=== PATIENT | female | born 1935 | race Caucasian/White ===

== ENCOUNTER 2020-09-13 14:34 | Outpatient (CLI) | payer MEDICARE, OTHER | END 2020-09-13 14:35 | disposition critical access hospital (66) | LOC: EMS 14:34 | DX: R10.9 Unspecified abdominal pain (principal) | CPT/HCPCS: A0425; A0429 ==

== ENCOUNTER 2020-09-13 15:05 | Emergency (ER) | payer MEDICARE, OTHER ==
--- NOTE | 2020-09-13 15:12 | ED Physician Documentation ---
History of Present Illness - Stated complaint Stated Complaint: GLF - Chief complaint Chief Complaint: Trauma Ch/Bk - History obtained from History obtained from: Patient, EMS - History of Present Illness Timing: How many days ago (2) Pain level max: 6 Pain level now: 4 - Additonal information Additional information: Patient is an 85-year-old female who presents to the emergency department after a ground-level fall 2 days ago. She states that she fell on a concrete step on her left ribs. Worse with movement, better with Tylenol and rest. No difficulty breathing. No cough. No fever. No congestion. No headache. No vomiting. She states that she had some slight difficulty writing a check yesterday. No neck or back pain. No hip pain. Ambulating without difficulty. Patient states that she is on Eliquis at home. Review of Systems Ten Systems: 10 systems reviewed and negative Constitutional: denies: Fever, Chills Ears: denies: Ear pain Nose: denies: Rhinorrhea / runny nose, Congestion GI: denies: Vomiting, Diarrhea Skin: denies: Rash Musculoskeletal: denies: Neck pain, Back pain Neurologic: denies: Focal weakness, Numbness, Headache PD PAST MEDICAL HISTORY - Past Medical History Past Medical History: Yes Cardiovascular: Atrial fibrillation - Allergies Allergies/Adverse Reactions: Allergies Allergy/AdvReac Type Severity Reaction Status Date / Time aspirin Allergy Unknown Verified 09/13/20 15:10 iodine Allergy Unknown Verified 09/13/20 15:10 antibiotic that starts with Allergy Unknown Uncoded 09/13/20 15:10 a B? - Living Situation Living Situation: reports: With family Living Arrangement: reports: At home - Social History Does the pt have substance abuse?: No - Family History Family history: reports: Non contributory PD ED PE NORMAL - Vitals Vital signs reviewed: Yes - General General: Alert and oriented X 3, No acute distress, Well developed/nourished - HEENT HEENT: Atraumatic, PERRL, Moist mucous membranes - Neck Neck: Supple, no meningeal sign, No bony TTP - Cardiac Cardiac: RRR, Strong equal pulses - Respiratory Respiratory: No respiratory distress, Clear bilaterally - Abdomen Abdomen: Soft, Non tender, Non distended - Back Back: Other (No midline tenderness to palpation or percussion. No step-off or deformity over the thoracic or lumbar spine. She is tender to palpation over the lateral left mid axillary ribs. No ecchymosis. No crepitus.) - Derm Derm: Warm and dry - Extremities Extremities: No edema, No calf tenderness / cord - Neuro Neuro: Alert and oriented X 3, money manager 2-12 intact, No motor deficit, No sensory deficit, Normal speech Eye Opening: Spontaneous Motor: Obeys Commands Verbal: Oriented GCS Score: 15 - Psych Psych: Normal mood, Normal affect Results - Vitals Vitals: Vital Signs - 24 hr 09/13/20 09/13/20 15:07 16:28 Temperature 37.0 C Heart Rate 68 94 Respiratory 16 18 Rate Blood Pressure 177/117 H 140/101 H O2 Saturation 95 94 Oxygen O2 Source Room air - Rads (name of study) head CT Radiology: Prelim report reviewed, EMP read contemporaneously, See rad report (1. Age-related volume loss and moderate small vessel ischemic change. 2. No evidence acute stroke, hemorrhage, or mass. 3. No evidence of significant intracranial sequelae of acute trauma. ) rib with cxr Radiology: Prelim report reviewed, EMP read contemporaneously, See rad report (1. No evidence of displaced left rib fracture. 2. Congestive heart failure exacerbation. ) PD MEDICAL DECISION MAKING - ED course Complexity details: reviewed results, re-evaluated patient, considered differential, d/w patient ED course: Patient with a ground-level fall. No acute findings on x-rays. Appears to be soft tissue contusions. No pneumothorax. No fevers. No chills. No cough. Patient declines pain medication here for home. Ambulating without difficulty. Patient counseled regarding signs and symptoms for which I believe and urgent re-evaluation would be necessary. Patient with good understanding of and agreement to plan and is comfortable going home at this time This document was made in part using voice recognition software. While efforts are made to proofread this document, sound alike and grammatical errors may occur. Departure - Departure Disposition: 01 Home, Self Care Clinical Impression: Contusion of rib on left side Qualifiers: Encounter type: initial encounter Qualified Code(s): S20.212A - Contusion of left front wall of thorax, initial encounter Fall Qualifiers: Encounter type: initial encounter Qualified Code(s): W19.XXXA - Unspecified fall, initial encounter Condition: Good Instructions: ED Contusion Rib Follow-Up: your,doctor in 1 week [Other] Comments: Your x-rays and CT scan did not show any acute abnormalities today. Continue Tylenol at home. Return if you worsen. Discharge Date/Time: 09/13/20 16:57
--- NOTE | 2020-09-13 15:50 | CT Report ---
PROCEDURE: HEAD WO INDICATIONS: fall, head injury, on anticoagulants TECHNIQUE: Noncontrast 4.5 mm thick angled axial sections acquired from the foramen magnum to the vertex. For r adiation dose reduction, the following was used: automated exposure control, adjustment of mA and/or kV according to patient size. COMPARISON: None. FINDINGS: Image quality: Excellent. CSF spaces: Basal cisterns are patent. No extra-axial fluid collections. Ventricles are normal in size and shape. Age-related volume loss and moderate small vessel ischemic change. Brain: No midline shift. No intracranial masses or hemorrhage. Dorsey-white matter interface is norm al. Skull and face: Calvarium and visualized facial bones are intact, without suspicious lesions. Sinuses: Visualized sinuses and mastoids are clear. IMPRESSION: 1. Age-related volume loss and moderate small vessel ischemic change. 2. No evidence acute stroke, hemorrhage, or mass. 3. No evidence of significant intracranial sequelae of acute trauma. Reviewed by: Miguel Simeon MD on 09/13/2020 2:48 PM TRENT Approved by: Miguel Simeon MD on 09/13/2020 2:48 PM AKYANG Station ID: [id number]
--- NOTE | 2020-09-13 15:56 | XRAY Report ---
PROCEDURE: Ribs w/PA Chest LT INDICATIONS: fall, L rib injury TECHNIQUE: 3 views of the left ribs were acquired, along with a single view chest. COMPARISON: None FINDINGS: Surgical changes and devices: Left upper quadrant clips. Bones and chest wall: No fractures or dislocations. No suspicious bony lesions. Overlying soft tis sues appear unremarkable. Lungs and pleura: No pleural effusions or pneumothorax. Mild diffuse interstitial change with curren tly B-lines. Mediastinum: Mediastinal contours appear normal. Mild cardiomegaly. IMPRESSION: 1. No evidence of displaced left rib fracture. 2. Congestive heart failure exacerbation. Reviewed by: Miguel Simeon MD on 09/13/2020 2:55 PM AKYANG Approved by: Miguel Simeon MD on 09/13/2020 2:55 PM AKYANG Station ID: [id number]
[2020-09-13 16:30] VITALS: BP 140/101
[2020-09-13] MEDS ORDERED: ACETAMINOPHEN 325 MG TABLET PO STA (16:43)
== END 2020-09-13 16:57 | disposition home or self-care (01) ==
LOC: ED 15:05
DX: S20.212A Contusion of left front wall of thorax, initial encounter (principal); W01.198A Fall on same level from slipping, tripping and stumbling with subsequent striking against other object, initial encounter; I48.91 Unspecified atrial fibrillation; Z79.01 Long term (current) use of anticoagulants
CPT/HCPCS: 70450; 71101; 99282; 99284; A9270

== ENCOUNTER 2020-11-20 12:56 | Outpatient (CLI) | payer MEDICARE, OTHER ==
--- NOTE | 2020-11-20 13:48 | XRAY Report ---
PROCEDURE: Chest 2 View X-Ray INDICATIONS: R06.02/R05 TECHNIQUE: 2 view(s) of the chest. COMPARISON: None. FINDINGS: Surgical changes and devices: Surgical clips left thyroid region. Surgical clips left upper quadrant. . Lungs and pleura: No pleural effusions or pneumothorax. Lungs are abnormal with a mild interstitial prominence that might represent prior smoking history.. Mediastinum: Mediastinal contours are normal. Heart size is at the upper limits of normal. Bones and chest wall: No suspicious bony abnormalities. Soft tissues appear unremarkable. IMPRESSION: Heart size is at the upper limits of normal. Mild chronic interstitial prominence. If po ssible please provide a specific indication rather than a code to assist in providing a targeted impr ession. Reviewed by: Rangel Hull MD on 11/20/2020 1:47 PM PDT Approved by: Rangel Hull MD on 11/20/2020 1:47 PM PDT Station ID: [id number]
== END 2020-11-20 12:57 | disposition home or self-care (01) ==
LOC: DI 12:56
PROVIDERS: ATTEND Physician Assistant
DX: R06.02 Shortness of breath (principal); R05 Cough

== ENCOUNTER 2021-05-09 00:03 | Outpatient (CLI) | payer MEDICARE, OTHER | END 2021-05-09 00:04 | disposition critical access hospital (66) | LOC: EMS 00:03 | DX: Z04.3 Encounter for examination and observation following other accident (principal) | CPT/HCPCS: A0425; A0429 ==

== ENCOUNTER 2021-05-09 00:23 | Emergency (ER) | payer MEDICARE, OTHER ==
[2021-05-09 01:20] LABS: BASOPHILS % (AUTO) 0.6 %; EOSINOPHILS # (AUTO) 0.1 10^3/uL (0.0-0.7); EOSINOPHILS % (AUTO) 1.9 %; HCT - HEMATOCRIT 39.4 % (37.0-47.0); HGB - HEMOGLOBIN 12.2 g/dL (12.0-16.0); LYMPHOCYTES # (AUTO) 1.9 10^3/uL (1.5-3.5); LYMPHOCYTES % (AUTO) 34.6 %; MEAN CORPUSCULAR HEMOGLOBIN 24.9 pg (27.0-31.0); MEAN CORPUSCULAR VOLUME 80.4 fL (81.0-99.0); MONOCYTES # (AUTO) 0.8 10^3/uL (0.0-1.0); MONOCYTES % (AUTO) 14.1 %; NEUTROPHILS # (AUTO) 2.6 10^3/uL (1.5-6.6); NEUTROPHILS % (AUTO) 48.6 %; NRBC ABSOLUTE COUNT (AUTO) 0.03 x10^3/uL; NUCLEATED RED BLOOD CELLS AUTO 0.6 /100WBC; PLT - PLATELET COUNT 252 10^3/uL (130-450); RED CELL DISTRIBUTION WIDTH 20.7 % (12.0-15.0); SLIDE REVIEW? Indicated; WHITE BLOOD COUNT 5.4 x10^3/uL (4.8-10.8)
[2021-05-09 01:28] LABS: ALBUMIN 3.5 g/dL (3.2-5.5); ALBUMIN/GLOBULIN RATIO 1.2 (1.0-2.2); BILIRUBIN,TOTAL 1.6 mg/dL (0.2-1.0); CALCIUM 9.2 mg/dL (8.5-10.3); CREATININE 0.7 mg/dL (0.4-1.0); POTASSIUM 3.5 mmol/L (3.5-5.0); TOTAL PROTEIN 6.4 g/dL (6.7-8.2)
[2021-05-09 01:39] LABS: PLATELET ESTIMATE, MANUAL NORMAL (130-450,000) (NORMAL); PLATELET MORPHOLOGY NORMAL APPEARANCE (NORMAL); RBC MORPHOLOGY (MULTIPLE) 1+ ANISOCYTOSIS (NORMAL)
[2021-05-09 01:40] LABS: WBC MORPHOLOGY (MULTIPLE) NORMAL APP (NORMAL)
[2021-05-09 02:05] LABS: BILIRUBIN,URINE NEGATIVE (NEGATIVE); CLARITY,URINE CLEAR (CLEAR); GLUCOSE, URINE (UA) NEGATIVE (NEGATIVE); KETONES,URINE (UA) NEGATIVE (NEGATIVE); LEUKOCYTE ESTERASE, URINE TRACE (NEGATIVE); NITRITE,URINE NEGATIVE (NEGATIVE); OCCULT BLOOD,URINE NEGATIVE (NEGATIVE); PROTEIN,URINE 30 mg/dL (NEGATIVE); UROBILINOGEN,URINE 0.2 (NORMAL) E.U./dL (NORMAL)
[2021-05-09 02:11] LABS: BACTERIA,URINE Few /HPF (None Seen); RBC,URINE None Seen /HPF (0-5); SQUAMOUS EPITHELIAL CELL,UR MANY Squamous (<= Few)
--- NOTE | 2021-05-09 03:12 | ED Physician Documentation ---
PD HPI Fall - Stated complaint Stated Complaint: GLF - Chief complaint Chief Complaint: General - History obtained from History obtained from: Patient, EMS - History of Present Illness Mechanism of injury: Other (on a chair to place an item on a top shelf and the chair collapsed. The patient fell foreward onto her chest and was not able to get up.) Fall distance: Less than 5ft Where injury occurred: Home Timing - onset: Today Injury(ies) location: Other (denies any injury) Associated symptoms: Other (had to crawl around today as she could not initially get up by herself.). No: LOC, AMS, Amnesia, Seizures, Ear drainage, Nasal drainage, Neck pain, Weakness, Paresthesias, Dyspnea, Nausea / vomiting, Hematemesis, Abdominal distension Symptoms improve with: Rest Contributing factors: Anticoagulated Similar symptoms before: Has not had sx before Recently seen: Not recently seen - Additional information Additional information: 85-year-old female went to place an item on a high shelf in her kitchen. She brought a chair over stood on top of the chair and the chair collapsed. She fell forward landing on her chest. She denies any head injury or loss of consciousness she was unable to get herself back up off the floor and she was unable to find her cell phone. She crawled around, and about 12 hours into it, she was able to find her cell phone called the paramedics they came to her house and the patient is transported the hospital as a fall on [facility]. The patient states she has no pain she did not strike her head she did not have loss of consciousness and she denies any specific injury associated with the fall. Here in the emerge department she is able to get up stand and walk and do this independently. Review of Systems Constitutional: denies: Fever Ears: denies: Ear pain Nose: denies: Congestion Throat: denies: Sore throat Cardiac: denies: Chest pain / pressure, Palpitations Respiratory: denies: Dyspnea, Cough GI: denies: Abdominal Pain, Nausea, Vomiting : reports: Frequency. denies: Dysuria Skin: denies: Rash Musculoskeletal: denies: Neck pain, Back pain, Extremity pain Neurologic: denies: Generalized weakness, Focal weakness, Numbness PD PAST MEDICAL HISTORY - Past Medical History Cardiovascular: Atrial fibrillation - Allergies Allergies/Adverse Reactions: Allergies Allergy/AdvReac Type Severity Reaction Status Date / Time aspirin Allergy Unknown Verified 09/13/20 15:10 iodine Allergy Unknown Verified 09/13/20 15:10 antibiotic that starts with Allergy Unknown Uncoded 09/13/20 15:10 a B? - Social History Does the pt smoke?: No Smoking Status: Never smoker Does the pt have substance abuse?: No PD ED PE NORMAL - Vitals Vital signs reviewed: Yes (hypertensive ) - General General: Alert and oriented X 3, No acute distress, Well developed/nourished - HEENT HEENT: Atraumatic, PERRL, EOMI - Neck Neck: Supple, no meningeal sign, No bony TTP - Cardiac Cardiac: Other (irregularly irregular with 2/6 short systolic murmer ) - Respiratory Respiratory: No respiratory distress, Clear bilaterally - Abdomen Abdomen: Soft, Non tender - Back Back: No CVA TTP, No spinal TTP - Derm Derm: Normal color, Warm and dry, No rash - Extremities Extremities: No deformity, Other (There is pitting edema bilat and symetric. 2+ and up to the thigh. Reduced from maximum s/p weeping and not weeping or blistered now. ) - Neuro Neuro: Alert and oriented X 3, reinforced ironworker 2-12 intact, No motor deficit, No sensory deficit, Normal speech Eye Opening: Spontaneous Motor: Obeys Commands Verbal: Oriented GCS Score: 15 - Psych Psych: Normal mood, Normal affect Results - Vitals Vitals: Vital Signs - 24 hr 05/09/21 05/09/21 05/09/21 00:30 03:00 03:35 Temperature 36.5 C Heart Rate 82 80 82 Respiratory 18 16 16 Rate Blood Pressure 149/107 H 123/76 135/85 H O2 Saturation 92 94 94 05/09/21 03:55 Temperature 36.5 C Heart Rate 82 Respiratory 16 Rate Blood Pressure 135/85 H O2 Saturation 94 Oxygen O2 Source Room air - Labs Labs: Laboratory Tests 05/09/21 05/09/21 05/09/21 01:10 01:10 01:47 WBC 5.4 RBC 4.90 Hgb 12.2 Hct 39.4 MCV 80.4 L MCH 24.9 L MCHC 31.0 L RDW 20.7 H Plt Count 252 MPV 10.0 Neut # (Auto) 2.6 Lymph # (Auto) 1.9 [place] # (Auto) 0.8 Eos # (Auto) 0.1 Baso # (Auto) 0.0 Absolute Nucleated RBC 0.03 Nucleated RBC % 0.6 Manual Slide Review Indicated WBC Morphology NORMAL KALINA Platelet Estimate NORMAL (130-450,000) Platelet Morphology NORMAL APPEARANCE RBC Morph Micro Appear 1+ ANISOCYTOSIS Sodium 137 Potassium 3.5 Chloride 95 L Carbon Dioxide 30 Anion Gap 12.0 BUN 25 H Creatinine 0.7 Estimated GFR (MDRD) 80 L Glucose 92 Calcium 9.2 Total Bilirubin 1.6 H AST 39 ALT 24 Alkaline Phosphatase 77 Total Protein 6.4 L Albumin 3.5 Globulin 2.9 Albumin/Globulin Ratio 1.2 Lipase 33 Urine Color YELLOW Urine Clarity CLEAR Urine pH 7.0 Ur Specific [place] 1.020 Urine Protein 30 H Urine Glucose (UA) NEGATIVE Urine Ketones NEGATIVE Urine Occult Blood NEGATIVE Urine Nitrite NEGATIVE Urine Bilirubin NEGATIVE Urine Urobilinogen 0.2 (NORMAL) Ur Leukocyte Esterase TRACE H Urine RBC None Seen Urine WBC 4-5 Ur Squamous Epith Cells MANY Squamous H Urine Bacteria Few Ur Microscopic Review INDICATED Urine Culture Comments NOT INDICATED Procedures - IVC sono (time) 0045 Bedside IVC sono: IVC measures (cm) (2.6), High CVP PD MEDICAL DECISION MAKING - ED course Complexity details: reviewed old records, reviewed results, re-evaluated patient, considered differential, d/w patient ED course: 85y/o female with a GLF unable to get up today has no injury. She appears competent and my initial worry was for over diuresis and I interrogated the IVC and found the patient has a lot of passive congestion similar to what she is under treatment for and she did nor require fluid rescue. We checked up on the patient by evaluating her blood counts, electrolytes, kidney and liver function and urinalysis. We found nothing amiss. She is on eliquis and has had a fall but did not strike her head. She denies neck pain. A CT of the head is not obtained. She eventually wants to go home and is able to easily ambulate to the bathroom. Departure - Departure Disposition: 01 Home, Self Care Clinical Impression: Fall at home Qualifiers: Encounter type: initial encounter Qualified Code(s): W19.XXXA - Unspecified fall, initial encounter Condition: Stable Instructions: ED Mechanical Fall, ED Prevention Fall Follow-Up: MELVI CHAVIRA PA-C [Primary Care Provider] - Discharge Date/Time: 05/09/21 03:57
[2021-05-09 03:55] VITALS: BP 135/85
== END 2021-05-09 03:57 | disposition home or self-care (01) ==
LOC: EDUNIT# → SUPCPDRO 00:23 → ED 00:23
DX: Z04.3 Encounter for examination and observation following other accident (principal); W07.XXXA Fall from chair, initial encounter; Y93.89 Activity, other specified; Y92.000 Kitchen of unspecified non-institutional (private) residence as the place of occurrence of the external cause; I48.91 Unspecified atrial fibrillation; Z79.01 Long term (current) use of anticoagulants; R01.1 Cardiac murmur, unspecified; R60.0 Localized edema; R35.0 Frequency of micturition
CPT/HCPCS: 36415; 80053; 81001; 81003; 83690; 85025; 87086; 99282; 99283

== ENCOUNTER 2021-06-09 13:09 | Emergency (ER) | payer MEDICARE, OTHER ==
[2021-06-09] MEDS ORDERED: FUROSEMIDE 40 MG/4 ML VIAL IVP STA (13:59)
--- NOTE | 2021-06-09 14:03 | ED Physician Documentation ---
PD HPI DYSPNEA - Stated complaint Stated Complaint: SOA,FATIGUE - Chief complaint Chief Complaint: Resp - History obtained from History obtained from: Patient - History of Present Illness Timing - onset: How many weeks ago (1) Timing - onset during: Light activity Timing - duration: Weeks (1) Timing - details: Gradual onset, Still present Inciting event(s): URI Improved by: Rest Worsened by: Exertion, Coughing Associated symptoms: Cough, Bilateral edema. No: Fever, Hemoptysis, Wheezing, Chest pain / discomfort, Palpitations, Diaphoresis, Unilateral edema, Anxiety Similar symptoms before: Diagnosis (CHF URI) Recently seen: Not recently seen - Additional information Additional information: 86-year-old female with a history of congestive heart failure has developed increased exertional dyspnea over the past week. She noted that this seemed to happen when she had a cough and congestion was bringing up yellowish-green phlegm. She denies any chest pain associated with this. She has not had a fever associated with this. She is taking some furosemide and her doctor is asked her to increase her dose to 1-1/2 pills a day. Review of Systems Constitutional: denies: Fever, Chills, Myalgias Eyes: denies: Decreased vision Ears: denies: Ear pain Nose: reports: Rhinorrhea / runny nose, Congestion Throat: denies: Sore throat Cardiac: denies: Chest pain / pressure, Palpitations Respiratory: reports: Dyspnea, Cough. denies: Wheezing GI: denies: Abdominal Pain, Nausea, Vomiting, Constipation, Diarrhea : reports: Frequency. denies: Dysuria Skin: denies: Rash Musculoskeletal: reports: Extremity swelling. denies: Neck pain, Back pain, Extremity pain Neurologic: denies: Generalized weakness, Focal weakness, Numbness PD PAST MEDICAL HISTORY - Past Medical History Past Medical History: Yes Cardiovascular: Atrial fibrillation Endocrine/Autoimmune: HyPOthyroidism GI: GERD - Past Surgical History Past Surgical History: Yes General: Cholecystectomy, Splenectomy Ortho: Hip replacement, Knee replacement HEENT: Tonsil/Adenoidectomy - Present Medications Home Medications: Ambulatory Orders Medication Instructions Recorded Confirmed Apixaban [Eliquis] 2.5 mg PO BID 06/09/21 06/09/21 Esomeprazole Magnesium [Nexium] 20 mg PO DAILY 06/09/21 06/09/21 Furosemide [Lasix] 40 mg PO DAILY 06/09/21 06/09/21 Furosemide [Lasix] 80 mg PO DAILY 06/09/21 06/09/21 Metoprolol Tartrate [Lopressor] 50 mg PO BID 06/09/21 06/09/21 Potassium Chloride 10 meq PO DAILY 06/09/21 06/09/21 Thyroid,Pork [Alden Thyroid] 60 mg PO DAILY 06/09/21 06/09/21 - Allergies Allergies/Adverse Reactions: Allergies Allergy/AdvReac Type Severity Reaction Status Date / Time aspirin Allergy Unknown Verified 06/09/21 13:20 iodine Allergy Unknown Verified 06/09/21 13:20 antibiotic that starts with Allergy Unknown Uncoded 06/09/21 13:20 a B? - Social History Does the pt smoke?: No Smoking Status: Never smoker Does the pt drink ETOH?: No Does the pt have substance abuse?: No PD ED PE NORMAL - Vitals Vital signs reviewed: Yes (hypertensive) - General General: Alert and oriented X 3, No acute distress, Well developed/nourished - HEENT HEENT: Atraumatic, PERRL, EOMI - Neck Neck: Supple, no meningeal sign, No bony TTP - Cardiac Cardiac: Other (Irregularly irregular rate and rhythm with distant heart sounds.) - Respiratory Respiratory: No respiratory distress, Other (And inspiratory crackles bilaterally at the bases worse on the right than the left.) - Abdomen Abdomen: Soft, Non tender - Back Back: No CVA TTP, No spinal TTP - Derm Derm: Normal color, Warm and dry, No rash - Extremities Extremities: No deformity, Other (bilat edema is present) - Neuro Neuro: Alert and oriented X 3, funeral location manager 2-12 intact, No motor deficit, No sensory deficit, Normal speech Eye Opening: Spontaneous Motor: Obeys Commands Verbal: Oriented GCS Score: 15 - Psych Psych: Normal mood, Normal affect Results - Vitals Vitals: Vital Signs - 24 hr 06/09/21 06/09/21 13:15 15:20 Temperature 36.2 C L 36.5 C Heart Rate 87 86 Respiratory 20 13 Rate Blood Pressure 156/96 H 154/92 H O2 Saturation 94 98 Oxygen O2 Source Room air - EKG (time done) 1427 Rate: Rate (enter#) (85) Rhythm: Atrial fibrillation Intervals: Prolonged QT Ischemia: Q waves Compare to prior EKG: Old EKG unavailable Computer interpretation: Agree with computer - Labs Labs: Laboratory Tests 06/09/21 06/09/21 06/09/21 14:14 14:14 14:14 WBC 5.9 RBC 4.13 L Hgb 10.2 L Hct 32.9 L MCV 79.7 L MCH 24.7 L MCHC 31.0 L RDW 21.7 H Plt Count 261 MPV 9.8 Neut # (Auto) 2.8 Lymph # (Auto) 1.9 [place] # (Auto) 1.0 Eos # (Auto) 0.2 Baso # (Auto) 0.1 Absolute Nucleated RBC 0.02 Nucleated RBC % 0.3 Manual Slide Review Indicated WBC Morphology NORMAL APPEARANCE Platelet Estimate NORMAL (130-450,000) Platelet Morphology NORMAL APPEARANCE RBC Morph Micro Appear 1+ SCHISTOCYTES PT 15.9 H INR 1.4 H Sodium 136 Potassium 3.9 Chloride 99 L Carbon Dioxide 27 Anion Gap 10.0 BUN 23 H Creatinine 0.8 Estimated GFR (MDRD) 68 L Glucose 102 H Calcium 8.7 Total Bilirubin 1.3 H AST 33 ALT 20 Alkaline Phosphatase 103 Troponin I High Sens B-Natriuretic Peptide Total Protein 6.4 L Albumin 3.6 Globulin 2.8 Albumin/Globulin Ratio 1.3 Lipase 33 Urine Color Urine Clarity Urine pH Ur Specific [place] Urine Protein Urine Glucose (UA) Urine Ketones Urine Occult Blood Urine Nitrite Urine Bilirubin Urine Urobilinogen Ur Leukocyte Esterase Ur Microscopic Review Urine Culture Comments 06/09/21 06/09/21 06/09/21 14:14 14:14 15:12 WBC RBC Hgb Hct MCV MCH MCHC RDW Plt Count MPV Neut # (Auto) Lymph # (Auto) [place] # (Auto) Eos # (Auto) Baso # (Auto) Absolute Nucleated RBC Nucleated RBC % Manual Slide Review WBC Morphology Platelet Estimate Platelet Morphology RBC Morph Micro Appear PT INR Sodium Potassium Chloride Carbon Dioxide Anion Gap BUN Creatinine Estimated GFR (MDRD) Glucose Calcium Total Bilirubin AST ALT Alkaline Phosphatase Troponin I High Sens 19.0 H* B-Natriuretic Peptide 1084 H Total Protein Albumin Globulin Albumin/Globulin Ratio Lipase Urine Color YELLOW Urine Clarity CLEAR Urine pH 6.0 Ur Specific [place] 1.020 Urine Protein NEGATIVE Urine Glucose (UA) NEGATIVE Urine Ketones NEGATIVE Urine Occult Blood NEGATIVE Urine Nitrite NEGATIVE Urine Bilirubin NEGATIVE Urine Urobilinogen 0.2 (NORMAL) Ur Leukocyte Esterase NEGATIVE Ur Microscopic Review NOT INDICATED Urine Culture Comments NOT INDICATED - Rads (name of study) chest Radiology: Prelim report reviewed (Impression: 1. No acute cardiopulmonary abnormality.), EMP read indepedently, See rad report Procedures - IVC sono (time) 1355 Bedside IVC sono: IVC measures (cm) (2.6), High CVP (the vessle is plethoric) PD MEDICAL DECISION MAKING - ED course Complexity details: reviewed old records, reviewed results, re-evaluated patient, considered differential, d/w patient ED course: 86-year-old female with history of congestive heart failure has developed a cough and congestion over the past week and she appears on examination to have decompensated her congestive heart failure. She has crackles at the bases bilaterally she has peripheral edema and a plethoric IVC. She is administered intravenous Lasix. She does have some good output and feels she has some improvement in her ease of breathing. She will follow her primary care doctor's recommendation for increasing her dose of Lasix for a short period of time. Departure - Departure Disposition: 01 Home, Self Care Clinical Impression: Congestive heart failure Qualifiers: Heart failure type: unspecified Heart failure chronicity: acute on chronic Qualified Code(s): I50.9 - Heart failure, unspecified Condition: Stable Instructions: ED CHF General Follow-Up: PRASANNA MIRZA ARNP [Primary Care Provider] - Comments: Remedios, today it looks like you do have some extra fluid on board from your congestive heart failure. We have given you a dose of Lasix here in the emerge ncy department and it seems to have worked. The recommendation is to follow the instructions given to you by your primary care doctor to increase your dose of Lasix tomorrow. Discharge Date/Time: 06/09/21 16:20
[2021-06-09 14:24] LABS: BASOPHILS # (AUTO) 0.1 10^3/uL (0.0-0.1); BASOPHILS % (AUTO) 0.8 %; EOSINOPHILS # (AUTO) 0.2 10^3/uL (0.0-0.7); EOSINOPHILS % (AUTO) 3.2 %; HCT - HEMATOCRIT 32.9 % (37.0-47.0); HGB - HEMOGLOBIN 10.2 g/dL (12.0-16.0); LYMPHOCYTES # (AUTO) 1.9 10^3/uL (1.5-3.5); LYMPHOCYTES % (AUTO) 31.5 %; MEAN CORPUSCULAR HEMOGLOBIN 24.7 pg (27.0-31.0); MEAN CORPUSCULAR VOLUME 79.7 fL (81.0-99.0); MEAN PLATELET VOLUME 9.8 fL (7.9-10.8); MONOCYTES % (AUTO) 16.3 %; NEUTROPHILS # (AUTO) 2.8 10^3/uL (1.5-6.6); NEUTROPHILS % (AUTO) 47.9 %; NRBC ABSOLUTE COUNT (AUTO) 0.02 x10^3/uL; NUCLEATED RED BLOOD CELLS AUTO 0.3 /100WBC; PLT - PLATELET COUNT 261 10^3/uL (130-450); RED BLOOD COUNT 4.13 10^6/uL (4.20-5.40); RED CELL DISTRIBUTION WIDTH 21.7 % (12.0-15.0); WHITE BLOOD COUNT 5.9 x10^3/uL (4.8-10.8)
--- NOTE | 2021-06-09 14:26 | XRAY Report ---
PROCEDURE: Chest 1 View X-Ray INDICATIONS: chest pain TECHNIQUE: One view of the chest was acquired. COMPARISON: November 20, 2020. FINDINGS: SUPPORT DEVICES: None. LUNGS/PLEURA: Mildly coarsened interstitial markings. No focal consolidation, pleural effusion or spa ce-occupying pneumothorax. MEDIASTINUM: The cardiac silhouette is upper limits of normal. Mitral valve calcification is seen. BONES/SOFT TISSUES: No acute abnormality. Persistent elevation of the right diaphragm. IMPRESSION: 1.No acute cardiopulmonary abnormality. Reviewed by: Curt Loza MD on 06/09/2021 2:25 PM PDT Approved by: Curt Loza MD on 06/09/2021 2:25 PM PDT Station ID: [id number]
[2021-06-09 14:31] LABS: INR 1.4 (0.8-1.2); PT - PROTHROMBIN TIME 15.9 secs (9.9-12.6); SLIDE REVIEW? Indicated
[2021-06-09 14:38] LABS: ALBUMIN 3.6 g/dL (3.2-5.5); ALBUMIN/GLOBULIN RATIO 1.3 (1.0-2.2); BILIRUBIN,TOTAL 1.3 mg/dL (0.2-1.0); CALCIUM 8.7 mg/dL (8.5-10.3); CREATININE 0.8 mg/dL (0.4-1.0); POTASSIUM 3.9 mmol/L (3.5-5.0); TOTAL PROTEIN 6.4 g/dL (6.7-8.2)
[2021-06-09 15:10] LABS: PLATELET ESTIMATE, MANUAL NORMAL (130-450,000) (NORMAL); PLATELET MORPHOLOGY NORMAL APPEARANCE (NORMAL)
[2021-06-09 15:11] LABS: WBC MORPHOLOGY (MULTIPLE) NORMAL APPEARANCE (NORMAL)
[2021-06-09 15:38] LABS: BILIRUBIN,URINE NEGATIVE (NEGATIVE); GLUCOSE, URINE (UA) NEGATIVE (NEGATIVE); KETONES,URINE (UA) NEGATIVE (NEGATIVE); LEUKOCYTE ESTERASE, URINE NEGATIVE (NEGATIVE); NITRITE,URINE NEGATIVE (NEGATIVE); OCCULT BLOOD,URINE NEGATIVE (NEGATIVE); PROTEIN,URINE NEGATIVE (NEGATIVE); UROBILINOGEN,URINE 0.2 (NORMAL) E.U./dL (NORMAL)
[2021-06-09 15:40] VITALS: BP 154/92
[2021-06-09 15:40] LABS: CLARITY,URINE CLEAR (CLEAR)
== END 2021-06-09 16:20 | disposition home or self-care (01) ==
LOC: ED 13:09
DX: I50.9 Heart failure, unspecified (principal)
CPT/HCPCS: 36415; 80053; 81001; 81003; 83690; 83880; 84484; 85025; 85610; 87086; 93005; 96374; 99284

== ENCOUNTER 2021-06-10 12:18 | Outpatient (CLI) | payer MEDICARE, OTHER | END 2021-06-10 12:19 | disposition critical access hospital (66) | LOC: EMS 12:18 | DX: R44.3 Hallucinations, unspecified (principal); R41.0 Disorientation, unspecified | CPT/HCPCS: A0425; A0429 ==

== ENCOUNTER 2021-06-10 12:41 | Emergency (ER) | payer MEDICARE, OTHER ==
[2021-06-10 12:52] VITALS: BP 133/93
--- NOTE | 2021-06-10 12:56 | ED Physician Documentation ---
History of Present Illness - Stated complaint Stated Complaint: AMS - Chief complaint Chief Complaint: General - Additonal information Additional information: 86-year-old female who has a history of congestive heart failure is brought to the emergency department from her care place [facility] for evaluation of reported altered mental status and hallucinations. Staff reported that patient tried to leave [facility] last night as well as had said to staff that the TV was talking to her. The patient was initially brought to the hospital yesterday for her scheduled outpatient echocardiogram. When it could not be completed due to scheduling conflicts she was offered to be seen in the emergency department. Yesterday though an echocardiogram was not completed she was noted to have a modestly elevated BNP and her usual dose of Lasix was increased. She was then discharged home. Care staff have reported that the patient is hallucinating. Here in the emergency department the patient appears rather well. She has no apparent focal neuro deficits. She is fully cognizant of yesterday's events as well as those of today. She denies any hallucinations. She is well aware that is [place] [place] Day but she does not celebrated she is [place]. She is denying any chest pain. Feels that her dyspnea is improved by about 50% from yesterday. No abdominal pain, nausea or vomiting. Denies dysuria or or urgency. States the Lasix has made her go more than she had anticipated. Review of Systems Constitutional: denies: Fever, Chills, Myalgias Eyes: reports: Reviewed and negative Nose: reports: Reviewed and negative Throat: reports: Reviewed and negative Cardiac: denies: Chest pain / pressure, Palpitations Respiratory: reports: Dyspnea. denies: Cough GI: reports: Reviewed and negative : reports: Reviewed and negative Skin: reports: Reviewed and negative Musculoskeletal: reports: Reviewed and negative Neurologic: denies: Generalized weakness, Focal weakness, Numbness, Difficulty speaking, Near syncope, Confused, Headache, Head injury, LOC Psychiatric: reports: Reviewed and negative PD PAST MEDICAL HISTORY - Past Medical History Cardiovascular: Atrial fibrillation Endocrine/Autoimmune: HyPOthyroidism GI: GERD - Past Surgical History Past Surgical History: Yes General: Cholecystectomy, Splenectomy Ortho: Hip replacement, Knee replacement HEENT: Tonsil/Adenoidectomy - Present Medications Home Medications: Ambulatory Orders Medication Instructions Recorded Confirmed Apixaban [Eliquis] 2.5 mg PO BID 06/09/21 06/09/21 Esomeprazole Magnesium [Nexium] 20 mg PO DAILY 06/09/21 06/09/21 RX: Furosemide [Lasix] 40 mg PO DAILY 06/09/21 06/09/21 RX: Furosemide [Lasix] 80 mg PO DAILY 06/09/21 06/09/21 RX: Metoprolol Tartrate [Lopressor] 50 mg PO BID 06/09/21 06/09/21 RX: Potassium Chloride 10 meq PO DAILY 06/09/21 06/09/21 RX: Thyroid,Pork [[place] Thyroid] 60 mg PO DAILY 06/09/21 06/09/21 - Allergies Allergies/Adverse Reactions: Allergies Allergy/AdvReac Type Severity Reaction Status Date / Time aspirin Allergy Unknown Verified 06/10/21 12:52 iodine Allergy Unknown Verified 06/10/21 12:52 antibiotic that starts with Allergy Unknown Uncoded 06/10/21 12:52 a B? - Social History Does the pt smoke?: No Smoking Status: Never smoker Does the pt drink ETOH?: No Does the pt have substance abuse?: No PD ED PE NORMAL - General General: Alert and oriented X 3, No acute distress, Well developed/nourished - HEENT HEENT: Atraumatic, Moist mucous membranes - Neck Neck: Supple, no meningeal sign, No adenopathy - Cardiac Cardiac: RRR, No murmur, No gallop - Respiratory Respiratory: No respiratory distress, Clear bilaterally - Abdomen Abdomen: Normal bowel sounds, Soft, Non tender - Back Back: No CVA TTP, No spinal TTP - Derm Derm: Normal color, Warm and dry, No rash - Extremities Extremities: No deformity. No: No edema (Bilateral lower extremity pedal edema. 2+ DP pulse. Brisk cap refill.) - Neuro Neuro: Alert and oriented X 3, athletic training internship 2-12 intact, No motor deficit Eye Opening: Spontaneous Motor: Obeys Commands Verbal: Oriented GCS Score: 15 - Psych Psych: Normal affect Results - Vitals Vitals: Vital Signs - 24 hr 06/10/21 06/10/21 12:47 12:52 Temperature 36.2 C L 36.2 C L Heart Rate 102 H 102 H Respiratory 16 16 Rate Blood Pressure 133/93 H 133/93 H O2 Saturation 95 95 Oxygen O2 Source Room air - Labs Labs: Laboratory Tests 03/06/10/21 06/10/21 13:13 13:13 13:13 WBC 7.8 RBC 4.26 Hgb 10.7 L Hct 33.1 L MCV 77.7 L MCH 25.1 L MCHC 32.3 RDW 21.2 H Plt Count 295 MPV 9.8 Neut # (Auto) 4.2 Lymph # (Auto) 2.1 [place] # (Auto) 1.2 H Eos # (Auto) 0.2 Baso # (Auto) 0.0 Absolute Nucleated RBC 0.03 Nucleated RBC % 0.4 Sodium 139 Potassium 3.4 L Chloride 99 L Carbon Dioxide 29 Anion Gap 11.0 BUN 18 Creatinine 0.8 Estimated GFR (MDRD) 68 L Glucose 112 H Calcium 8.5 Total Bilirubin 1.5 H AST 32 ALT 19 Alkaline Phosphatase 92 B-Natriuretic Peptide 529 H Total Protein 6.3 L Albumin 3.6 Globulin 2.7 Albumin/Globulin Ratio 1.3 Lipase 40 Urine Color Urine Clarity Urine pH Ur Specific [place] Urine Protein Urine Glucose (UA) Urine Ketones Urine Occult Blood Urine Nitrite Urine Bilirubin Urine Urobilinogen Ur Leukocyte Esterase Ur Microscopic Review Urine Culture Comments 06/10/21 13:41 WBC RBC Hgb Hct MCV MCH MCHC RDW Plt Count MPV Neut # (Auto) Lymph # (Auto) [place] # (Auto) Eos # (Auto) Baso # (Auto) Absolute Nucleated RBC Nucleated RBC % Sodium Potassium Chloride Carbon Dioxide Anion Gap BUN Creatinine Estimated GFR (MDRD) Glucose Calcium Total Bilirubin AST ALT Alkaline Phosphatase B-Natriuretic Peptide Total Protein Albumin Globulin Albumin/Globulin Ratio Lipase Urine Color YELLOW Urine Clarity CLEAR Urine pH 7.5 Ur Specific [place] 1.015 Urine Protein NEGATIVE Urine Glucose (UA) NEGATIVE Urine Ketones NEGATIVE Urine Occult Blood NEGATIVE Urine Nitrite NEGATIVE Urine Bilirubin NEGATIVE Urine Urobilinogen 1 (NORMAL) Ur Leukocyte Esterase NEGATIVE Ur Microscopic Review NOT INDICATED Urine Culture Comments NOT INDICATED PD MEDICAL DECISION MAKING - ED course Complexity details: reviewed results, re-evaluated patient, considered differential, d/w patient ED course: 86-year-old female was sent to the emergency department for concerns of altered mental status and/or hallucinations. Seen in this emergency department yesterday for heart failure. She had been unable to get her echo as an outpati ent therefore her son requested she be evaluated in the emergency department. She was noted to have an elevated BNP and was started on increased doses of Lasix. Patient reports that since yesterday she feels that her dyspnea has improved by about 50%. She is not hypoxic. Room air saturations are 94% or better. The patient is alert and oriented. Has no obvious focal deficits. She denies hallucinations. We did repeat screening labs today which show a markedly improved BNP. Chest x-ray yesterday was negative and without new cough or fever it was not repeated today. Her urine today showed no signs of infection I did discuss the case with her primary care provider Valencia Paniagua. She expressed to me that the patient was relatively new to her and she did not have much history or baseline for behavior activity thus she recommended she return to the ER. Departure - Departure Disposition: Home, Self Care Clinical Impression: Dyspnea Qualifiers: Dyspnea type: dyspnea on exertion Qualified Code(s): R06.00 - Dyspnea, unspecified Condition: Stable Record reviewed to determine appropriate education?: Yes Follow-Up: VALENCIA MIRZA ARNP [Physician No Access] - Comments: Remedios was sent to the emergency department today for concerns that she may have been hallucinating last night. While here in the emergency department today she has had no findings to suggest stroke or hallucinations or altered mental status. She was seen in the emergency department yesterday for heart failure. Her shortness of air has improved. Her screening labs do not show any worrisome findings and her BN P is improved. Her chest x-ray yesterday did not show any signs of pneumonia therefore one was not done today. Her urine today shows no signs of infection. Please continue to take all her medications as otherwise prescribed and follow- up with her primary care provider. Return to the emergency department for fevers, sudden severe chest pain or any fainting episodes, Or sudden weakness in arms, legs or facial droop.
[2021-06-10 13:17] LABS: BASOPHILS % (AUTO) 0.5 %; EOSINOPHILS # (AUTO) 0.2 10^3/uL (0.0-0.7); EOSINOPHILS % (AUTO) 2.3 %; HCT - HEMATOCRIT 33.1 % (37.0-47.0); HGB - HEMOGLOBIN 10.7 g/dL (12.0-16.0); LYMPHOCYTES # (AUTO) 2.1 10^3/uL (1.5-3.5); LYMPHOCYTES % (AUTO) 26.9 %; MEAN CORPUSCULAR HEMOGLOBIN 25.1 pg (27.0-31.0); MEAN CORPUSCULAR HGB CONC 32.3 g/dL (32.0-36.0); MEAN CORPUSCULAR VOLUME 77.7 fL (81.0-99.0); MEAN PLATELET VOLUME 9.8 fL (7.9-10.8); MONOCYTES # (AUTO) 1.2 10^3/uL (0.0-1.0); MONOCYTES % (AUTO) 15.6 %; NEUTROPHILS # (AUTO) 4.2 10^3/uL (1.5-6.6); NEUTROPHILS % (AUTO) 54.3 %; NRBC ABSOLUTE COUNT (AUTO) 0.03 x10^3/uL; NUCLEATED RED BLOOD CELLS AUTO 0.4 /100WBC; PLT - PLATELET COUNT 295 10^3/uL (130-450); RED BLOOD COUNT 4.26 10^6/uL (4.20-5.40); RED CELL DISTRIBUTION WIDTH 21.2 % (12.0-15.0); WHITE BLOOD COUNT 7.8 x10^3/uL (4.8-10.8)
[2021-06-10 13:29] LABS: ALBUMIN 3.6 g/dL (3.2-5.5); ALBUMIN/GLOBULIN RATIO 1.3 (1.0-2.2); BILIRUBIN,TOTAL 1.5 mg/dL (0.2-1.0); CALCIUM 8.5 mg/dL (8.5-10.3); CREATININE 0.8 mg/dL (0.4-1.0); POTASSIUM 3.4 mmol/L (3.5-5.0); TOTAL PROTEIN 6.3 g/dL (6.7-8.2)
[2021-06-10 13:47] LABS: BILIRUBIN,URINE NEGATIVE (NEGATIVE); CLARITY,URINE CLEAR (CLEAR); GLUCOSE, URINE (UA) NEGATIVE (NEGATIVE); KETONES,URINE (UA) NEGATIVE (NEGATIVE); LEUKOCYTE ESTERASE, URINE NEGATIVE (NEGATIVE); NITRITE,URINE NEGATIVE (NEGATIVE); OCCULT BLOOD,URINE NEGATIVE (NEGATIVE); PH,URINE 7.5 PH (5.0-7.5); PROTEIN,URINE NEGATIVE (NEGATIVE); UROBILINOGEN,URINE 1 (NORMAL) E.U./dL (NORMAL)
== END 2021-06-10 17:23 | disposition home or self-care (01) ==
LOC: EDUNIT# → ED 12:41
DX: R06.09 Other forms of dyspnea (principal); I48.91 Unspecified atrial fibrillation; Z79.01 Long term (current) use of anticoagulants; I50.9 Heart failure, unspecified
CPT/HCPCS: 36415; 80053; 81001; 81003; 83690; 83880; 85025; 87086; 99283

== ENCOUNTER 2021-06-29 00:46 | Outpatient (CLI) | payer MEDICARE, OTHER | END 2021-06-29 00:47 | disposition critical access hospital (66) | LOC: EMS 00:46 | DX: M25.552 Pain in left hip (principal); R50.9 Fever, unspecified; R11.2 Nausea with vomiting, unspecified; W01.0XXA Fall on same level from slipping, tripping and stumbling without subsequent striking against object, initial encounter; Y92.099 Unspecified place in other non-institutional residence as the place of occurrence of the external cause | CPT/HCPCS: A0425; A0427 ==

== ENCOUNTER 2021-12-01 08:00 | Outpatient (CLI) | payer MEDICARE, OTHER ==
--- NOTE | 2021-12-01 11:51 | XRAY Report ---
PROCEDURE: Ribs w/PA Chest LT INDICATIONS: L LOWER POSTERIOR MASS TECHNIQUE: 3 views of the left ribs were acquired, along with a single view chest. COMPARISON: Chest x-ray 06/09/2021. FINDINGS: Surgical changes and devices: None. Bones and chest wall: There is a subacute appearing lateral seventh rib fracture. There is healing p eriosteal reaction/sclerosis. No suspicious bony lesions. Overlying soft tissues appear unremarkable . Lungs and pleura: No pleural effusions or pneumothorax. Lungs appear clear. Mediastinum: Mediastinal contours appear normal. Heart size is enlarged. IMPRESSION: Subacute left seventh lateral rib fracture. Reviewed by: Azul Joya MD on 12/01/2021 11:49 AM PDT Approved by: Azul Joya MD on 12/01/2021 11:49 AM PDT Station ID: [id number]
== END 2021-12-01 23:59 | disposition home or self-care (01) ==
LOC: DI.N 08:00
PROVIDERS: ATTEND Registered Nurse
DX: S22.32XA Fracture of one rib, left side, initial encounter for closed fracture (principal)

== ENCOUNTER 2022-04-26 10:36 | Outpatient (CLI) | payer MEDICARE, OTHER ==
--- NOTE | 2022-04-26 13:02 | XRAY Report ---
PROCEDURE: Knee 2 View LT INDICATIONS: HISTORY OF TOTAL LEFT KNEE REPLACEMENT TECHNIQUE: 2 views of the left knee(s) were acquired. COMPARISON: None. FINDINGS: Bones: No fractures or dislocations. No suspicious bony lesions. Left knee total arthroplasty. The knee prosthesis appears intact. Soft tissues: Small joint effusion. Vascular calcifications consistent with atherosclerosis. Linear calcification along the suprapatellar knee joint. IMPRESSION: 1. Left knee total arthroplasty with intact prosthesis. 2. Small knee joint effusion. There is linear calcification in the suprapatellar knee joint. Reviewed by: Patt Brunson MD on 04/26/2022 1:01 PM PST Approved by: Patt Brunson MD on 04/26/2022 1:01 PM PST Station ID: [id number]
== END 2022-04-26 10:37 | disposition home or self-care (01) ==
LOC: DI 10:36
PROVIDERS: ATTEND Family Medicine
DX: Z09 Encounter for follow-up examination after completed treatment for conditions other than malignant neoplasm (principal); M25.462 Effusion, left knee; Z96.652 Presence of left artificial knee joint

== ENCOUNTER 2022-07-05 12:02 | Outpatient (CLI) | payer MEDICARE, OTHER | END 2022-07-05 23:59 | disposition critical access hospital (66) | LOC: EMS 12:02 | DX: R19.7 Diarrhea, unspecified (principal); R05.9 Cough, unspecified | CPT/HCPCS: A0425; A0429 ==

== ENCOUNTER 2022-07-05 12:37 | Emergency (ER) | payer MEDICARE, OTHER ==
--- NOTE | 2022-07-05 13:14 | XRAY Report ---
PROCEDURE: Chest 2 View X-Ray INDICATIONS: cough TECHNIQUE: 2 views of the chest were acquired. COMPARISON: 06/09/2021. FINDINGS: Surgical changes and devices: Left upper abdomen surgical clips and left neck base surgical clips ar e stable. Lungs and pleura: No pleural effusions or pneumothorax. Lungs are clear. Mediastinum: Mediastinal contours appear normal. Is enlarged. Bones and chest wall: No suspicious bony lesions. Overlying soft tissues appear unremarkable. IMPRESSION: No acute cardiopulmonary disease process Reviewed by: Miriam Arnold MD, PhD on 07/05/2022 1:13 PM PDT Approved by: Miriam Arnold MD, PhD on 07/05/2022 1:13 PM PDT Station ID: [id number]
[2022-07-05 13:15] LABS: BASOPHILS # (AUTO) 0.1 10^3/uL (0.0-0.1); BASOPHILS % (AUTO) 0.7 %; EOSINOPHILS # (AUTO) 0.3 10^3/uL (0.0-0.7); EOSINOPHILS % (AUTO) 4.3 %; HCT - HEMATOCRIT 40.2 % (37.0-47.0); HGB - HEMOGLOBIN 12.8 g/dL (12.0-16.0); LYMPHOCYTES # (AUTO) 1.7 10^3/uL (1.5-3.5); LYMPHOCYTES % (AUTO) 23.9 %; MEAN CORPUSCULAR HEMOGLOBIN 29.9 pg (27.0-31.0); MEAN CORPUSCULAR HGB CONC 31.8 g/dL (32.0-36.0); MEAN CORPUSCULAR VOLUME 93.9 fL (81.0-99.0); MEAN PLATELET VOLUME 9.3 fL (7.9-10.8); MONOCYTES # (AUTO) 0.8 10^3/uL (0.0-1.0); MONOCYTES % (AUTO) 11.8 %; NEUTROPHILS # (AUTO) 4.1 10^3/uL (1.5-6.6); NRBC ABSOLUTE COUNT (AUTO) 0.03 x10^3/uL; NUCLEATED RED BLOOD CELLS AUTO 0.4 /100WBC; PLT - PLATELET COUNT 234 10^3/uL (130-450); RED BLOOD COUNT 4.28 10^6/uL (4.20-5.40); RED CELL DISTRIBUTION WIDTH 14.8 % (12.0-15.0)
[2022-07-05 13:23] LABS: CALCIUM 8.9 mg/dL (8.5-10.3); CREATININE 0.8 mg/dL (0.4-1.0)
--- NOTE | 2022-07-05 13:29 | ED Physician Documentation ---
History of Present Illness - Stated complaint Stated Complaint: COLD LIKE SX/X3 WKS - Chief complaint Chief Complaint: General - History obtained from History obtained from: Patient, EMS - History of Present Illness Timing: How many weeks ago (3) Pain level max: 0 Pain level now: 0 - Additonal information Additional information: 87-year-old female states that she has had a mild dry cough for about the past 3 weeks. She states that she noticed her blood pressure has been higher than usual over the past several weeks as well. No chest pain. Initially was reported that she had some shortness of breath, but patient denies this. She states that she felt short of breath when she was coughing, but otherwise no shortness of breath. No chest pain. No vomiting. Did have diarrhea this morning. Has had negative COVID test. Review of Systems Constitutional: denies: Fever, Chills Nose: reports: Rhinorrhea / runny nose Respiratory: reports: Cough (Mild, dry). denies: Dyspnea, Wheezing GI: reports: Diarrhea (1 episode today). denies: Abdominal Pain, Nausea, Vomiting, Hematemesis, Bloody / black stool : denies: Dysuria Skin: denies: Rash Neurologic: denies: Focal weakness, Numbness, Headache PD PAST MEDICAL HISTORY - Past Medical History Cardiovascular: Atrial fibrillation Endocrine/Autoimmune: HyPOthyroidism GI: GERD - Past Surgical History Past Surgical History: Yes General: Cholecystectomy, Splenectomy Ortho: Hip replacement, Knee replacement HEENT: Tonsil/Adenoidectomy - Present Medications Home Medications: Ambulatory Orders Medication Instructions Recorded Confirmed Apixaban [Eliquis] 2.5 mg PO BID 06/09/21 06/29/21 Esomeprazole Magnesium [Nexium] 20 mg PO DAILY 06/09/21 06/29/21 Furosemide [Lasix] 40 mg PO DAILY 06/09/21 06/29/21 Furosemide [Lasix] 80 mg PO DAILY 06/09/21 06/29/21 Metoprolol Tartrate [Lopressor] 50 mg PO BID 06/09/21 06/29/21 Potassium Chloride 10 meq PO DAILY 06/09/21 06/29/21 Thyroid,Pork [[place] Thyroid] 60 mg PO DAILY 06/09/21 06/29/21 - Allergies Allergies/Adverse Reactions: Allergies Allergy/AdvReac Type Severity Reaction Status Date / Time aspirin Allergy Unknown Verified 06/29/21 01:12 iodine Allergy Unknown Verified 06/29/21 01:12 antibiotic that starts with Allergy Unknown Uncoded 06/29/21 01:12 a B? - Social History Does the pt smoke?: No Smoking Status: Never smoker Does the pt drink ETOH?: No Does the pt have substance abuse?: No PD ED PE NORMAL - Vitals Vital signs reviewed: Yes - General General: Alert and oriented X 3, No acute distress, Well developed/nourished - HEENT HEENT: PERRL, Ears normal, Moist mucous membranes, Pharynx benign - Neck Neck: Supple, no meningeal sign - Cardiac Cardiac: RRR, Strong equal pulses - Respiratory Respiratory: No respiratory distress, Clear bilaterally - Abdomen Abdomen: Soft, Non tender, Non distended - Back Back: No CVA TTP, No spinal TTP - Derm Derm: Warm and dry, No rash - Extremities Extremities: No edema, No calf tenderness / cord - Neuro Neuro: Alert and oriented X 3 - Psych Psych: Normal mood, Normal affect Results - Vitals Vitals: Vital Signs - 24 hr 07/05/22 07/05/22 12:24 13:49 Temperature 37.0 C 37.0 C Heart Rate 72 76 Respiratory 16 24 Rate Blood Pressure 183/111 H 171/97 H O2 Saturation 96 95 Oxygen O2 Source Room air - Labs Labs: Laboratory Tests 07/05/22 07/05/22 13:09 13:09 WBC 7.0 RBC 4.28 Hgb 12.8 Hct 40.2 MCV 93.9 MCH 29.9 MCHC 31.8 L RDW 14.8 Plt Count 234 MPV 9.3 Neut # (Auto) 4.1 Lymph # (Auto) 1.7 [place] # (Auto) 0.8 Eos # (Auto) 0.3 Baso # (Auto) 0.1 Absolute Nucleated RBC 0.03 Nucleated RBC % 0.4 Sodium 140 Potassium 4.0 Chloride 102 Carbon Dioxide 30 Anion Gap 8.0 BUN 17 Creatinine 0.8 Estimated GFR (MDRD) 68 L Glucose 112 H Calcium 8.9 - Rads (name of study) cxr Relevant Findings:: Final report received, See rad report PD Medical Decision Making - ED course Complexity details: reviewed results, re-evaluated patient, considered differential, d/w patient ED course: Patient is very well-appearing, nontoxic. Afebrile. No hypoxia. No respiratory distress. No acute findings on chest x-ray. No significant abnormalities on CBC or chemistry. No evidence of pneumonia, sepsis. Asymptomatic with her blood pressure. No evidence of endorgan damage. We will have her follow-up with her doctor for further care. In accordance with the [facility] clinical policy from April 2012, this patient has asymptomatic elevated blood pressure without evidence of acute target organ injury. There are also no signs of acute stroke, cardiac ischemia, pulmonary edema, encephalopathy or acute congestive heart failure. Therefore the patient will be referred to their primary care provider for follow-up of their asymptomatic hypertension. Patient counseled regarding signs and symptoms for which I believe and urgent re-evaluation would be necessary. Patient with good understanding of and agreement to plan and is comfortable going home at this time This document was made in part using voice recognition software. While efforts are made to proofread this document, sound alike and grammatical errors may occur. Departure - Departure Disposition: 01 Home, Self Care Clinical Impression: Viral syndrome Hypertension Qualifiers: Hypertension type: unspecified Qualified Code(s): I10 - Essential (primary) hypertension Condition: Good Instructions: ED Viral Syndrome Follow-Up: your,doctor in 1 week [Other] Comments: Please follow-up with your doctor for further care. Please return if you worsen. Your chest x-ray and laboratory testing did not show any acute abnormalities today. There is no evidence of pneumonia. This appears to be a viral syndrome. It should improve on its own.
[2022-07-05 13:50] VITALS: BP 171/97
== END 2022-07-05 13:56 | disposition home or self-care (01) ==
LOC: ED 12:37
DX: B34.9 Viral infection, unspecified (principal); I10 Essential (primary) hypertension; I48.91 Unspecified atrial fibrillation; Z79.01 Long term (current) use of anticoagulants
CPT/HCPCS: 36415; 80048; 85025; 99283; 99284

== ENCOUNTER 2022-07-15 13:46 | Outpatient (CLI) | payer MEDICARE, OTHER | END 2022-07-15 23:59 | disposition critical access hospital (66) | LOC: EMS 13:46 | DX: R06.03 Acute respiratory distress (principal); R05.9 Cough, unspecified; R11.2 Nausea with vomiting, unspecified; R19.7 Diarrhea, unspecified | CPT/HCPCS: A0425; A0427 ==

== ENCOUNTER 2022-07-15 14:06 | Emergency (ER) | payer MEDICARE, OTHER ==
--- NOTE | 2022-07-15 14:13 | ED Physician Documentation ---
History of Present Illness - Stated complaint Stated Complaint: SOA N/V/D - History obtained from History obtained from: Patient - Additonal information Additional information: This is a juanito elderly woman with history of A-fib, hypothyroidism, CHF who has had cough for the last 4 weeks, productive for the last 2. Saw my partner 10 days ago for that, found to be hypertensive but negative chest x-ray and labs. She still has the cough, and starting today she has had both diarrhea and vomiting. She denies abdominal pain. She received 4 mg of Zofran on the way here and is feeling better from a nausea perspective. No reported fevers. PD PAST MEDICAL HISTORY - Past Medical History Cardiovascular: Atrial fibrillation Endocrine/Autoimmune: HyPOthyroidism GI: GERD - Past Surgical History Past Surgical History: Yes General: Cholecystectomy, Splenectomy Ortho: Hip replacement, Knee replacement HEENT: Tonsil/Adenoidectomy - Present Medications Home Medications: Ambulatory Orders Medication Instructions Recorded Confirmed Apixaban [Eliquis] 2.5 mg PO BID 06/09/21 06/29/21 Esomeprazole Magnesium [Nexium] 20 mg PO DAILY 06/09/21 06/29/21 Furosemide [Lasix] 40 mg PO DAILY 06/09/21 06/29/21 Furosemide [Lasix] 80 mg PO DAILY 06/09/21 06/29/21 Metoprolol Tartrate [Lopressor] 50 mg PO BID 06/09/21 06/29/21 Potassium Chloride 10 meq PO DAILY 06/09/21 06/29/21 Thyroid,Pork [[place] Thyroid] 60 mg PO DAILY 06/09/21 06/29/21 Ondansetron Odt [Zofran] 4 mg TL Q6H PRN #10 tablet 07/15/22 - Allergies Allergies/Adverse Reactions: Allergies Allergy/AdvReac Type Severity Reaction Status Date / Time aspirin Allergy Unknown Verified 06/29/21 01:12 iodine Allergy Unknown Verified 06/29/21 01:12 sulfamethoxazole Allergy Unknown Verified 07/15/22 14:24 [From Bactrim] trimethoprim [From Bactrim] Allergy Unknown Verified 07/15/22 14:24 antibiotic that starts with Allergy Unknown Uncoded 06/29/21 01:12 a B? - Social History Does the pt smoke?: No Smoking Status: Never smoker Does the pt drink ETOH?: No Does the pt have substance abuse?: No PD ED PE NORMAL - Vitals Vital signs reviewed: Yes - General General: Alert and oriented X 3, No acute distress - HEENT HEENT: PERRL, EOMI - Cardiac Cardiac: Other (Irregularly irregular, subtlety of her heart sounds is obscured by loud breath sounds.) - Respiratory Respiratory: No respiratory distress, Other (Rhonchorous throughout without focal findings) - Abdomen Abdomen: Normal bowel sounds, Soft, Non tender - Back Back: No spinal TTP - Derm Derm: Normal color, Warm and dry - Extremities Extremities: No edema, No calf tenderness / cord - Neuro Neuro: Alert and oriented X 3, Normal speech Results - Vitals Vitals: Vital Signs - 24 hr 07/15/22 07/15/22 07/15/22 14:13 14:24 15:51 Temperature 36.5 C Heart Rate 84 72 88 Respiratory 20 19 20 Rate Blood Pressure 175/113 H 182/93 H O2 Saturation 93 98 If not protocol 2 2 : Oxygen Flow, liters/minute 07/15/22 16:25 Temperature Heart Rate 78 Respiratory 20 Rate Blood Pressure 160/85 H O2 Saturation 100 If not protocol 2 : Oxygen Flow, liters/minute Oxygen O2 Source Nasal cannula Oxygen Flow Rate 2 - EKG (time done) 1411 EKG releavant findings:: EKG personally interpreted by author of this note. Relevant findings are: Rate: Rate (enter#) (83) Rhythm: Atrial fibrillation (w pvc) Intervals: Prolonged QT QRS: Normal Ischemia: Normal ST segments, Q waves (ant/septal) - Labs Labs: Laboratory Tests 07/15/22 07/15/22 07/15/22 14:22 14:22 14:22 WBC 6.6 RBC 4.48 Hgb 13.2 Hct 42.4 MCV 94.6 MCH 29.5 MCHC 31.1 L RDW 17.7 H Plt Count 169 MPV 10.3 Neut # (Auto) 3.7 Lymph # (Auto) 1.9 [place] # (Auto) 0.8 Eos # (Auto) 0.2 Baso # (Auto) 0.0 Absolute Nucleated RBC 0.08 Nucleated RBC % 1.2 Sodium 138 Potassium 3.8 Chloride 99 L Carbon Dioxide 32 Anion Gap 7.0 BUN 16 Creatinine 0.8 Estimated GFR (MDRD) 68 L Glucose 117 H Calcium 7.9 L Total Bilirubin 1.4 H AST 33 ALT 21 Alkaline Phosphatase 67 Troponin I High Sens 16.4 H* B-Natriuretic Peptide Total Protein 5.9 L Albumin 3.5 Globulin 2.4 Albumin/Globulin Ratio 1.5 Lipase 38 07/15/22 14:22 WBC RBC Hgb Hct MCV MCH MCHC RDW Plt Count MPV Neut # (Auto) Lymph # (Auto) [place] # (Auto) Eos # (Auto) Baso # (Auto) Absolute Nucleated RBC Nucleated RBC % Sodium Potassium Chloride Carbon Dioxide Anion Gap BUN Creatinine Estimated GFR (MDRD) Glucose Calcium Total Bilirubin AST ALT Alkaline Phosphatase Troponin I High Sens B-Natriuretic Peptide 1077 H Total Protein Albumin Globulin Albumin/Globulin Ratio Lipase - Rads (name of study) Single view chest x-ray is clear Relevant Findings:: Final report received, EMP independent interpretation of test PD Medical Decision Making - ED course ED course: 87-year-old woman presents with acute vomiting and diarrhea consistent with gastroenteritis. Abdominal exam is benign. She also has an ongoing complaint of about a months worth of ongoing cough with shortness of breath. Her initial work-up was with labs, a CBC that was normal, CMP that was only really remarkable for a modestly low calcium which was repleted IV. She was noted to be somewhat hypoxic with rhonchorous breath sounds. After an albuterol nebs she was no longer hypoxic. Because of the hypoxemia was otherwise somewhat curious was sent for CT angiography of the chest which was negative for PE but did show some reflux of contrast. This was followed by a troponin although technically high is lower than her prior number on the chart and a BNP that is also kind of within the patient's normal range. Since she was no longer hypoxic she is safely discharged home. Departure - Departure Disposition: 01 Home, Self Care Clinical Impression: Bronchitis, Gastroenteritis Hypertension Qualifiers: Hypertension type: unspecified Qualified Code(s): I10 - Essential (primary) hypertension Chronic heart failure Qualifiers: Heart failure type: right-sided Qualified Code(s): I50.812 - Chronic right heart failure Condition: Good Instructions: ED Upper Resp Infec No Abx Tx, ED Gastroenteritis Viral Prescriptions: Ondansetron Odt [Zofran] 4 mg TL Q6H PRN #10 tablet PRN Reason: Nausea / Vomiting Comments: Continue current medications, I am adding something for nausea. You were seen today for gastroenteritis on top of the cough you have had for quite some time. The chest x-ray remains clear. CBC was normal without leukocytosis. CMP normal save mildly depressed calcium level for which we did give you some IV calcium here. You were feeling better after the Zofran that w as previously administered by the pile driver engineer. I am writing a prescription for this. You can continue the Imodium that you were taking at the facility. Should be better within the next day or so, return if worse or if not better in that timeframe.
[2022-07-15 14:26] LABS: BASOPHILS % (AUTO) 0.6 %; EOSINOPHILS # (AUTO) 0.2 10^3/uL (0.0-0.7); EOSINOPHILS % (AUTO) 2.9 %; HCT - HEMATOCRIT 42.4 % (37.0-47.0); HGB - HEMOGLOBIN 13.2 g/dL (12.0-16.0); LYMPHOCYTES # (AUTO) 1.9 10^3/uL (1.5-3.5); LYMPHOCYTES % (AUTO) 28.1 %; MEAN CORPUSCULAR HEMOGLOBIN 29.5 pg (27.0-31.0); MEAN CORPUSCULAR HGB CONC 31.1 g/dL (32.0-36.0); MEAN CORPUSCULAR VOLUME 94.6 fL (81.0-99.0); MEAN PLATELET VOLUME 10.3 fL (7.9-10.8); MONOCYTES # (AUTO) 0.8 10^3/uL (0.0-1.0); MONOCYTES % (AUTO) 11.6 %; NEUTROPHILS # (AUTO) 3.7 10^3/uL (1.5-6.6); NEUTROPHILS % (AUTO) 56.5 %; NRBC ABSOLUTE COUNT (AUTO) 0.08 x10^3/uL; NUCLEATED RED BLOOD CELLS AUTO 1.2 /100WBC; PLT - PLATELET COUNT 169 10^3/uL (130-450); RED BLOOD COUNT 4.48 10^6/uL (4.20-5.40); RED CELL DISTRIBUTION WIDTH 17.7 % (12.0-15.0); WHITE BLOOD COUNT 6.6 x10^3/uL (4.8-10.8)
[2022-07-15 14:39] LABS: ALBUMIN 3.5 g/dL (3.2-5.5); ALBUMIN/GLOBULIN RATIO 1.5 (1.0-2.2); BILIRUBIN,TOTAL 1.4 mg/dL (0.2-1.0); CALCIUM 7.9 mg/dL (8.5-10.3); CREATININE 0.8 mg/dL (0.4-1.0); POTASSIUM 3.8 mmol/L (3.5-5.0); TOTAL PROTEIN 5.9 g/dL (6.7-8.2)
--- NOTE | 2022-07-15 14:39 | XRAY Report ---
PROCEDURE: Chest 1 View X-Ray INDICATIONS: cough TECHNIQUE: One view of the chest was acquired. COMPARISON: Chest x-ray 07/05/2022 FINDINGS: Surgical changes and devices: Multiple clips are noted overlying the left upper quadrant. Lungs and pleura: No pleural effusions or pneumothorax. Lungs are clear. Mediastinum: Mediastinal contours appear normal. Heart size is enlarged. Bones and chest wall: No suspicious bony lesions. Overlying soft tissues appear unremarkable. IMPRESSION: No acute pulmonary process. Reviewed by: Azul Joya MD on 07/15/2022 2:38 PM PDT Approved by: Azul Joya MD on 07/15/2022 2:38 PM PDT Station ID: [id number]
[2022-07-15] MEDS ORDERED: CALCIUM GLUC 1,000MG/50ML-NACL 1,000 MG/50 ML BAG IV STA (14:50)
[2022-07-15] MEDS ORDERED: ALBUTEROL NEB 2.5 MG/3 ML INH STA (15:37)
[2022-07-15] MEDS ORDERED: iohexoL-300 100 ML VIAL ONE (16:10)
[2022-07-15 16:26] VITALS: BP 160/85
[2022-07-15] MEDS ORDERED: iohexoL-300 100 ML VIAL IVP ONE (16:50)
--- NOTE | 2022-07-15 16:58 | CT Report ---
PROCEDURE: ANGIO CHEST W/WO INDICATIONS: dyspnea hypoxemia, pe protocol CONTRAST: 80ml omni 300 TECHNIQUE: After the administration of intravenous contrast, 2 mm axial images were acquired from the pulmonary apices to the posterior costophrenic angles during the arterial phase. In addition, 1 mm lung kernel and 5 mm soft tissue kernel reconstructions were performed. 3-dimensional coronal oblique maximum int ensity projection (MIP) reformats, 8 mm axial MIP, and 5 mm coronal and sagittal MPR reformats were t hen performed through the thorax. For radiation dose reduction, the following was used: automated exp osure control, adjustment of mA and/or kV according to patient size. COMPARISON: Same day x-ray FINDINGS: Image quality: Suboptimal due to motion artifact. Large vessels: No filling defects within the opacified pulmonary arteries, accounting for motion and contrast timing. No evidence of acute aortic syndrome or aortic aneurysm. Reflux of contrast into th e IVC. Lungs and pleura: No pleural effusions. No pneumothorax. No suspicious pulmonary nodules which requi re follow up. Mediastinum: Heart size is enlarged. No pericardial effusions. No mediastinal adenopathy by size crit eria. Chest wall and lower neck: Thyroid is unremarkable. No axillary or supraclavicular adenopathy by size . Bones: No aggressive osseous abnormality. Upper Abdomen: Unremarkable. IMPRESSION: Suboptimal evaluation due to motion artifact. No large pulmonary embolus to the central or lobular le vels. Marked cardiomegaly. Reflux of contrast in the IVC indicate elevated right heart pressures. No signif icant pulmonary edema on this exam. Reviewed by: Rickey Otoole on 07/15/2022 4:56 PM PDT Approved by: Rickey Otoole on 07/15/2022 4:56 PM PDT Station ID: [id number]
== END 2022-07-15 17:59 | disposition home or self-care (01) ==
LOC: EDUNIT# → ED 14:06
DX: K52.9 Noninfective gastroenteritis and colitis, unspecified (principal); J40 Bronchitis, not specified as acute or chronic; I50.812 Chronic right heart failure; I11.0 Hypertensive heart disease with heart failure; I48.91 Unspecified atrial fibrillation; Z79.01 Long term (current) use of anticoagulants
CPT/HCPCS: 36415; 71045; 71275; 80053; 83690; 83880; 84484; 85025; 93005; 94640; 96365; 99284; Q9967

== ENCOUNTER 2022-08-19 18:23 | Outpatient (CLI) | payer MEDICARE, OTHER | END 2022-08-19 23:59 | disposition critical access hospital (66) | LOC: EMS 18:23 | DX: M79.89 Other specified soft tissue disorders (principal); M79.604 Pain in right leg; R63.5 Abnormal weight gain | CPT/HCPCS: A0425; A0429 ==

== ENCOUNTER 2022-08-19 18:44 | Emergency (ER) | payer MEDICARE, OTHER ==
[2022-08-19] MEDS ORDERED: FUROSEMIDE 40 MG/4 ML VIAL IVP STA (18:49)
--- NOTE | 2022-08-19 18:50 | ED Physician Documentation ---
History of Present Illness - Stated complaint Stated Complaint: RT LEG SWELLING - History obtained from History obtained from: Patient, EMS - Additonal information Additional information: This is a juanito 87-year-old woman with history of CHF and A-fib on a DOAC who presents with about a weeks worth of right greater than left leg swelling and right leg pain with redness. Is associated with 9 pound weight gain and increased shortness of breath. Noticed to have room air oxygen saturation 92 by EMS and put on 2 L of oxygen. PD PAST MEDICAL HISTORY - Past Medical History Cardiovascular: Atrial fibrillation Endocrine/Autoimmune: HyPOthyroidism GI: GERD - Past Surgical History Past Surgical History: Yes General: Cholecystectomy, Splenectomy Ortho: Hip replacement, Knee replacement HEENT: Tonsil/Adenoidectomy - Present Medications Home Medications: Ambulatory Orders Medication Instructions Recorded Confirmed Apixaban [Eliquis] 2.5 mg PO BID 06/09/21 06/29/21 Esomeprazole Magnesium [Nexium] 20 mg PO DAILY 06/09/21 06/29/21 Furosemide [Lasix] 40 mg PO DAILY 06/09/21 06/29/21 Furosemide [Lasix] 80 mg PO DAILY 06/09/21 06/29/21 Metoprolol Tartrate [Lopressor] 50 mg PO BID 06/09/21 06/29/21 Potassium Chloride 10 meq PO DAILY 06/09/21 06/29/21 Thyroid,Pork [[place] Thyroid] 60 mg PO DAILY 06/09/21 06/29/21 Ondansetron Odt [Zofran] 4 mg TL Q6H PRN #10 tablet 07/15/22 Furosemide [Lasix] 40 mg PO DAILY #3 tablet 08/19/22 cephALEXin [Keflex] 500 mg PO Q6H #28 cap 08/19/22 - Allergies Allergies/Adverse Reactions: Allergies Allergy/AdvReac Type Severity Reaction Status Date / Time aspirin Allergy Unknown Verified 06/29/21 01:12 iodine Allergy Unknown Verified 06/29/21 01:12 sulfamethoxazole Allergy Unknown Verified 07/15/22 14:24 [From Bactrim] trimethoprim [From Bactrim] Allergy Unknown Verified 07/15/22 14:24 antibiotic that starts with Allergy Unknown Uncoded 06/29/21 01:12 a B? - Social History Does the pt smoke?: No Smoking Status: Never smoker Does the pt drink ETOH?: No Does the pt have substance abuse?: No PD ED PE NORMAL - Vitals Vital signs reviewed: Yes - General General: Alert and oriented X 3, No acute distress - Cardiac Cardiac: Other (Irregularly irregular without murmur) - Respiratory Respiratory: Other (Rales at both bases) - Abdomen Abdomen: Normal bowel sounds, Soft, Non tender - Back Back: No CVA TTP, No spinal TTP - Derm Derm: Normal color, Warm and dry - Extremities Extremities: Other (1-2+ left pitting edema without cellulitis. 4+ right pitting edema with cellulitis) - Neuro Neuro: Alert and oriented X 3, Normal speech Results - Vitals Vitals: Vital Signs - 24 hr 08/19/22 18:52 Temperature 36.7 C Heart Rate 76 Respiratory 18 Rate Blood Pressure 164/106 H O2 Saturation 94 Oxygen O2 Source Room air - Labs Labs: Laboratory Tests 08/19/22 08/19/22 08/19/22 19:04 19:04 19:04 WBC 6.6 RBC 4.65 Hgb 14.4 Hct 44.5 MCV 95.7 MCH 31.0 MCHC 32.4 RDW 21.4 H Plt Count 175 MPV 10.1 Neut # (Auto) 3.1 Lymph # (Auto) 2.1 [place] # (Auto) 1.0 Eos # (Auto) 0.4 Baso # (Auto) 0.1 Absolute Nucleated RBC 0.03 Nucleated RBC % 0.5 Manual Slide Review Indicated Platelet Estimate NORMAL (130-450,000) Platelet Morphology NORMAL APPEARANCE RBC Morph Micro Appear 1+ SCHISTOCYTES Sodium 136 Potassium 3.5 Chloride 94 L Carbon Dioxide 32 Anion Gap 10.0 BUN 14 Creatinine 0.7 Estimated GFR (MDRD) 79 L Glucose 137 H Calcium 8.2 L Magnesium 1.7 B-Natriuretic Peptide 1383 H - Rads (name of study) Single view chest x-rays suggestive of mild CHF. Radiologist notes that a viral infection could appear similarly, this does not fit clinical circumst Relevant Findings:: Final report received, EMP independent interpretation of test Limited DVT ultrasound without evidence of DVT Relevant Findings:: Final report received, EMP independent interpretation of test PD Medical Decision Making - ED course ED course: This is an 87-year-old woman who presents with symptomatic CHF with potentially right leg cellulitis on top. She had a weight gain and has some fluid in her lungs. She was administered 40 mg of IV Lasix. Subsequent to that she developed a lot of suprapubic cramping and bedside ultrasound demonstrated 900 mL in her bladder. Cabrera catheter was placed. At that point she no longer had an oxygen requirement and she had copious urine output Of greater than a liter. She felt much better and no longer had an oxygen requirement. We talked about taking catheter out but she would like to leave it in which I think is reasonable at this point. Departure - Departure Disposition: 01 Home, Self Care Clinical Impression: Cellulitis of right leg, Urinary retention CHF (congestive heart failure) Qualifiers: Heart failure type: unspecified Heart failure chronicity: acute on chronic Qualified Code(s): I50.9 - Heart failure, unspecified Condition: Good Record reviewed to determine appropriate education?: Yes Instructions: Cellulitis Dc, ED CHF Left Side, ED Catheter Care Cabrera Prescriptions: cephALEXin [Keflex] 500 mg PO Q6H #28 cap Furosemide [Lasix] 40 mg PO DAILY #3 tablet Comments: You were seen today for a right leg cellulitis with worsening of your congestive heart failure. I am doubling your Lasix dose for the next 3 days and adding antibiotics. We are leaving the catheter in, and you should follow-up with your primary care physician on Monday or Monday for recheck. Returning for new or worsening symptoms.
[2022-08-19 19:13] LABS: BASOPHILS # (AUTO) 0.1 10^3/uL (0.0-0.1); BASOPHILS % (AUTO) 0.9 %; EOSINOPHILS # (AUTO) 0.4 10^3/uL (0.0-0.7); EOSINOPHILS % (AUTO) 5.7 %; HCT - HEMATOCRIT 44.5 % (37.0-47.0); HGB - HEMOGLOBIN 14.4 g/dL (12.0-16.0); LYMPHOCYTES # (AUTO) 2.1 10^3/uL (1.5-3.5); LYMPHOCYTES % (AUTO) 31.3 %; MEAN CORPUSCULAR HGB CONC 32.4 g/dL (32.0-36.0); MEAN CORPUSCULAR VOLUME 95.7 fL (81.0-99.0); MEAN PLATELET VOLUME 10.1 fL (7.9-10.8); MONOCYTES % (AUTO) 14.8 %; NEUTROPHILS # (AUTO) 3.1 10^3/uL (1.5-6.6); NEUTROPHILS % (AUTO) 47.1 %; NRBC ABSOLUTE COUNT (AUTO) 0.03 x10^3/uL; NUCLEATED RED BLOOD CELLS AUTO 0.5 /100WBC; PLT - PLATELET COUNT 175 10^3/uL (130-450); RED BLOOD COUNT 4.65 10^6/uL (4.20-5.40); RED CELL DISTRIBUTION WIDTH 21.4 % (12.0-15.0); WHITE BLOOD COUNT 6.6 x10^3/uL (4.8-10.8)
[2022-08-19 19:23] LABS: CALCIUM 8.2 mg/dL (8.5-10.3); CREATININE 0.7 mg/dL (0.4-1.0); MAGNESIUM 1.7 mg/dL (1.7-2.8); POTASSIUM 3.5 mmol/L (3.5-5.0)
--- NOTE | 2022-08-19 19:49 | XRAY Report ---
PROCEDURE: Chest 1 View X-Ray INDICATIONS: Dyspnea, rales, history of CHF TECHNIQUE: One view of the chest was acquired. COMPARISON: 07/15/2022 FINDINGS: Surgical changes and devices: None. Lungs and pleura: Low lung volumes. Bilateral interstitial and bibasilar opacities no large pleural effusion or pneumothorax Mediastinum: Cardiac silhouette is enlarged Bones and chest wall: No suspicious bony lesions. Overlying soft tissues appear unremarkable. IMPRESSION: Findings compatible with mild fluid overload/CHF. Viral or atypical infection can result in similar p ulmonary opacities Reviewed by: Thomas Fitch MD on 08/19/2022 7:48 PM PDT Approved by: Thomas Fitch MD on 08/19/2022 7:48 PM PDT Station ID: [id number]
[2022-08-19 19:52] LABS: PLATELET ESTIMATE, MANUAL NORMAL (130-450,000) (NORMAL); PLATELET MORPHOLOGY NORMAL APPEARANCE (NORMAL); SLIDE REVIEW? Indicated
[2022-08-19] MEDS ORDERED: ceFAZolin 1 GM VIAL IVP STA (21:58)
--- NOTE | 2022-08-19 22:23 | Ultrasound Report ---
PROCEDURE: Duplex Ext Veins Right INDICATIONS: rle swelling TECHNIQUE: Real-time imaging, as well as color and pulse Doppler interrogation, were performed of the lower extr emity deep veins from the inguinal ligament to the popliteal fossa. COMPARISON: None. FINDINGS: The deep veins are normally compressible, and free of intraluminal thrombus. Color and pu lse Doppler demonstrate normal phasic intraluminal flow. There is normal augmentation response to di stal compression maneuver. Overall scan quality is limited secondary to pitting edema. The greater saphenous vein is not seen. IMPRESSION: The study, without findings of deep venous thrombosis. Note: Concordant preliminary findings given by the clinical engineering director upon the completion of the examination to Dr. Stone. Reviewed by: Ilan Lockwood MD on 08/19/2022 9:21 PM TRENT Approved by: Ilan Lockwood MD on 08/19/2022 9:21 PM TRENT Station ID: [id number]
[2022-08-20 00:14] VITALS: BP 163/107
== END 2022-08-20 00:10 | disposition home or self-care (01) ==
LOC: EDUNIT# → ED 18:44
DX: I50.9 Heart failure, unspecified (principal); L03.115 Cellulitis of right lower limb; R33.9 Retention of urine, unspecified
CPT/HCPCS: 36415; 51702; 80048; 83735; 83880; 85025; 99284

== ENCOUNTER 2022-08-27 02:03 | Emergency (ER) | payer MEDICARE, OTHER ==
--- NOTE | 2022-08-27 02:14 | ED Physician Documentation ---
History of Present Illness - Stated complaint Stated Complaint: FALL - Chief complaint Chief Complaint: Trauma Hd/Nk - History obtained from History obtained from: Patient, EMS - History of Present Illness Pain level max: 0 Pain level now: 0 - Additonal information Additional information: 87-year-old female was on the toilet when she tried to lean over to kill a bug, she fell forward off of the toilet and struck her head. No loss of consciousness. She does take Eliquis. No neck or back pain. No hip pain. No leg pain. No chest pain. No shortness of breath. No fever. No chills. Patient otherwise asymptomatic. Review of Systems Constitutional: denies: Fever, Chills Respiratory: denies: Cough GI: denies: Nausea, Vomiting, Diarrhea Skin: denies: Rash Musculoskeletal: denies: Neck pain, Back pain Neurologic: denies: Headache PD PAST MEDICAL HISTORY - Past Medical History Cardiovascular: Atrial fibrillation Endocrine/Autoimmune: HyPOthyroidism GI: GERD - Past Surgical History Past Surgical History: Yes General: Cholecystectomy, Splenectomy Ortho: Hip replacement, Knee replacement HEENT: Tonsil/Adenoidectomy - Present Medications Home Medications: Ambulatory Orders Medication Instructions Recorded Confirmed Apixaban [Eliquis] 2.5 mg PO BID 06/09/21 06/29/21 Esomeprazole Magnesium [Nexium] 20 mg PO DAILY 06/09/21 06/29/21 Furosemide [Lasix] 40 mg PO DAILY 06/09/21 06/29/21 Furosemide [Lasix] 80 mg PO DAILY 06/09/21 06/29/21 Metoprolol Tartrate [Lopressor] 50 mg PO BID 06/09/21 06/29/21 Potassium Chloride 10 meq PO DAILY 06/09/21 06/29/21 Thyroid,Pork [[place] Thyroid] 60 mg PO DAILY 06/09/21 06/29/21 Ondansetron Odt [Zofran] 4 mg TL Q6H PRN #10 tablet 07/15/22 Furosemide [Lasix] 40 mg PO DAILY #3 tablet 08/19/22 cephALEXin [Keflex] 500 mg PO Q6H #28 cap 08/19/22 - Allergies Allergies/Adverse Reactions: Allergies Allergy/AdvReac Type Severity Reaction Status Date / Time aspirin Allergy Unknown Verified 06/29/21 01:12 iodine Allergy Unknown Verified 06/29/21 01:12 sulfamethoxazole Allergy Unknown Verified 07/15/22 14:24 [From Bactrim] trimethoprim [From Bactrim] Allergy Unknown Verified 07/15/22 14:24 antibiotic that starts with Allergy Unknown Uncoded 06/29/21 01:12 a B? - Social History Does the pt smoke?: No Smoking Status: Never smoker Does the pt drink ETOH?: No Does the pt have substance abuse?: No PD ED PE NORMAL - Vitals Vital signs reviewed: Yes - General General: Alert and oriented X 3, No acute distress, Well developed/nourished - HEENT HEENT: Atraumatic, PERRL, Moist mucous membranes - Neck Neck: Supple, no meningeal sign, No bony TTP - Cardiac Cardiac: RRR, Strong equal pulses - Respiratory Respiratory: No respiratory distress, Clear bilaterally - Abdomen Abdomen: Soft, Non tender, Non distended - Back Back: No CVA TTP, No spinal TTP - Derm Derm: Warm and dry - Extremities Extremities: No deformity, Normal ROM s pain - Neuro Neuro: Alert and oriented X 3, 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, No motor deficit, No sensory deficit, Normal speech Eye Opening: Spontaneous Motor: Obeys Commands Verbal: Oriented GCS Score: 15 - Psych Psych: Normal mood, Normal affect Results - Vitals Vitals: Vital Signs - 24 hr 08/27/22 02:09 Temperature 36.4 C L Heart Rate 65 Respiratory 16 Rate Blood Pressure 158/96 H O2 Saturation 94 Oxygen O2 Source Room air - Rads (name of study) Head CT Relevant Findings:: Final report received, See rad report PD Medical Decision Making - ED course Complexity details: reviewed results, re-evaluated patient, considered differential, d/w patient ED course: Patient with a ground-level fall at home today. She did strike her head and is on Eliquis. Head CT does not show any acute abnormalities. Patient is GCS 15. Ambulating without difficulty. No apparent other injuries. She is at her normal mental baseline. We will have her follow-up with her doctor for further care. No fevers. No chills. No recent illnesses. No indication for lab work or urinalysis. Patient counseled regarding signs and symptoms for which I believe and urgent re-evaluation would be necessary. Patient with good understanding of and agreement to plan and is comfortable going home at this time This document was made in part using voice recognition software. While efforts are made to proofread this document, sound alike and grammatical errors may occur. Departure - Departure Disposition: 01 Home, Self Care Clinical Impression: Ground-level fall Closed head injury Qualifiers: Encounter type: initial encounter Qualified Code(s): S09.90XA - Unspecified injury of head, initial encounter Condition: Good Instructions: ED Head Injury Closed Follow-Up: Your,doctor as needed [Other] Comments: Your head CT does not show any acute abnormalities. Please follow-up with your doctor as needed for further care. Continue your current medications at home. Return if you worsen.
[2022-08-27 03:26] VITALS: BP 149/96
--- NOTE | 2022-08-27 07:12 | CT Report ---
PROCEDURE: HEAD WO INDICATIONS: fall, head injury, takes eliquis TECHNIQUE: Noncontrast 4.5 mm thick angled axial sections acquired from the foramen magnum to the vertex. For r adiation dose reduction, the following was used: automated exposure control, adjustment of mA and/or kV according to patient size. COMPARISON: 09/13/2020 FINDINGS: Image quality: Excellent. CSF spaces: Basal cisterns are patent. No extra-axial fluid collections. The ventricles are symmet andrew in size and shape. Brain: No intracranial bleeds or masses. There is cerebral volume loss for age, with resultant vent ricular and sulcal prominence. There are periventricular and deep white matter chronic small vessel ischemic changes. There is intracranial internal carotid artery atherosclerosis. Skull and face: Calvarium and visualized facial bones appear intact, without suspicious lesions. Sinuses: Visualized sinuses and mastoids are clear. IMPRESSION: No CT evidence of acute intracranial abnormalities. No acute skull fracture. No significant changes f rom previous study. No significant discrepancies from preliminary readings. Reviewed by: Reynaldo Dubon MD on 08/27/2022 7:10 AM PDT Approved by: Reynaldo Dubon MD on 08/27/2022 7:10 AM PDT Station ID: [id number]
== END 2022-08-27 03:24 | disposition home or self-care (01) ==
LOC: ED 02:03
DX: S09.90XA Unspecified injury of head, initial encounter (principal); W18.11XA Fall from or off toilet without subsequent striking against object, initial encounter; I48.91 Unspecified atrial fibrillation; Z79.01 Long term (current) use of anticoagulants
CPT/HCPCS: 36415; 99283; 99284

== ENCOUNTER 2022-08-27 04:19 | Outpatient (CLI) | payer MEDICARE, OTHER | END 2022-08-27 04:20 | disposition critical access hospital (66) | LOC: EMS 04:19 | DX: M79.18 Myalgia, other site (principal); M79.672 Pain in left foot; M79.671 Pain in right foot; W18.11XA Fall from or off toilet without subsequent striking against object, initial encounter; Y92.091 Bathroom in other non-institutional residence as the place of occurrence of the external cause | CPT/HCPCS: A0425; A0429 ==

== ENCOUNTER 2022-12-08 01:45 | Outpatient (CLI) | payer MEDICARE, OTHER | END 2022-12-08 01:46 | disposition critical access hospital (66) | LOC: EMS 01:45 | DX: S49.92XA Unspecified injury of left shoulder and upper arm, initial encounter (principal); W01.0XXA Fall on same level from slipping, tripping and stumbling without subsequent striking against object, initial encounter; Y92.092 Bedroom in other non-institutional residence as the place of occurrence of the external cause | CPT/HCPCS: A0425; A0427 ==

== ENCOUNTER 2023-01-08 19:23 | Outpatient (CLI) | payer MEDICARE, OTHER | END 2023-01-08 19:24 | disposition critical access hospital (66) | LOC: EMS 19:23 | DX: R51.9 Headache, unspecified (principal); W18.39XA Other fall on same level, initial encounter; Y92.122 Bedroom in nursing home as the place of occurrence of the external cause; Z79.01 Long term (current) use of anticoagulants | CPT/HCPCS: A0425; A0429 ==

== ENCOUNTER 2023-01-08 19:29 | Emergency (ER) | payer MEDICARE, OTHER ==
--- NOTE | 2023-01-08 20:07 | XRAY Report ---
PROCEDURE: Humerus LT INDICATIONS: fall on eliquis TECHNIQUE: 2 views of the humerus were acquired. COMPARISON: Left humerus radiographs and CT 12/08/2022 FINDINGS: Bones: Redemonstrated left humerus head/neck fracture, appears increased in angulation/displacement compared to before. No definite evidence of glenohumeral joint dislocation. Soft tissues: No suspicious soft tissue calcifications. IMPRESSION: Increase in angulation of the previously demonstrated left humeral head/neck fracture. Reviewed by: Thomas Fitch MD on 01/08/2023 8:06 PM PDT Approved by: Thomas Fitch MD on 01/08/2023 8:06 PM PDT Station ID: [id number]
--- NOTE | 2023-01-08 20:33 | CT Report ---
PROCEDURE: HEAD WO INDICATIONS: fall on eliquis TECHNIQUE: Noncontrast 4.5 mm thick angled axial sections acquired from the foramen magnum to the vertex. For r adiation dose reduction, the following was used: automated exposure control, adjustment of mA and/or kV according to patient size. COMPARISON: 08/27/2022 FINDINGS: CSF spaces: Basal cisterns are patent. No extra-axial fluid collections. Ventricles are normal in size and shape. Brain: No midline shift. No intracranial masses or hemorrhage. Dorsey-white matter interface is norm al. Periventricular and deep white matter hypodensities nonspecific possibly microvascular ischemic change. Skull and face: Calvarium and visualized facial bones are intact, without suspicious lesions. Sinuses: Visualized sinuses and mastoids are clear. IMPRESSION: No acute intracranial pathology. Reviewed by: Thomas Fitch MD on 01/08/2023 8:32 PM PDT Approved by: Thomas Fitch MD on 01/08/2023 8:32 PM PDT Station ID: [id number]
--- NOTE | 2023-01-08 20:41 | CT Report ---
PROCEDURE: CERVICAL SPINE WO INDICATIONS: fall on eliquis TECHNIQUE: Noncontrast 3 mm thick sections acquired from the skull base to the T4 level. Sagittal and coronal r eformats were then constructed. For radiation dose reduction, the following was used: automated exp osure control, adjustment of mA and/or kV according to patient size. COMPARISON: None. FINDINGS: Bones: No acute fractures or dislocations. Visualized superior ribs are intact. Multilevel degener ative changes of the cervical spine are present. Soft tissues: Prevertebral soft tissues are normal in thickness. No paravertebral hematomas. No ap ical pneumothoraces. IMPRESSION: No acute cervical spine fracture identified. Reviewed by: Thomas Fitch MD on 01/08/2023 8:39 PM PDT Approved by: Thomas Fitch MD on 01/08/2023 8:39 PM PDT Station ID: [id number]
--- NOTE | 2023-01-08 21:00 | ED Physician Documentation ---
PD HPI HEAD INJURY - Stated complaint Stated Complaint: GLF, HIT HEAD - Chief complaint Chief Complaint: Trauma Hd/Nk - History obtained from History obtained from: Patient - Additional information Additional information: Patient is an 87-year-old female who is currently rehabbing at [facility] presenting for evaluation of an unwitnessed fall. She was admitted to our hospital approximately 1 month ago after a fall at home and found to have a left humeral fracture. She was sent to [facility] for rehabilitation and needing additional assistance. She does have a history of A-fib and is on Eliquis. She is post ask for help from staff and getting up but she reports that she was stubborn and needed to use the bathroom and tried to get up from the living room before falling. Is unclear if she hit her head but staff was concerned that she may have thus calling 911. She continues to have bruising to the left arm. Per patient she has not followed up with orthopedic surgery for her humeral fracture . Patient denies any current complaints or concerns. Denies Headache, chest pain, shortness of air. Review of Systems Constitutional: denies: Fever Cardiac: denies: Chest pain / pressure Respiratory: denies: Dyspnea GI: denies: Abdominal Pain Musculoskeletal: reports: Extremity pain Neurologic: denies: Syncope PD PAST MEDICAL HISTORY - Past Medical History Cardiovascular: Atrial fibrillation Respiratory: None Neuro: Other Endocrine/Autoimmune: HyPOthyroidism GI: GERD HEENT: None Psych: Other - Past Surgical History Past Surgical History: Yes General: Cholecystectomy, Splenectomy Ortho: Hip replacement, Knee replacement HEENT: Tonsil/Adenoidectomy - Present Medications Home Medications: Ambulatory Orders Medication Instructions Recorded Confirmed Acetaminophen [Tylenol] 650 mg PO Q4HR PRN tab 12/13/22 01/08/23 Apixaban [Eliquis] 2.5 mg PO BID #0 12/13/22 01/08/23 Calcium Carbonate [Tums (Calcium 500 mg PO TID PRN tab 12/13/22 01/08/23 Carbonate 500mg)] Cholecalciferol [Vitamin D3] 25 mcg PO DAILY tab 12/13/22 01/08/23 Furosemide [Lasix] 40 mg PO DAILY tab 12/13/22 01/08/23 Magnesium Oxide [Mag Ox] 400 mg PO 1200 tab 12/13/22 01/08/23 Metoprolol Tartrate [Lopressor] 50 mg PO BID #0 12/13/22 01/08/23 Multivitamin [Theragran] 1 tab PO DAILYWM tab 12/13/22 01/08/23 Thiamine [Vitamin B-1] 100 mg PO DAILY tab 12/13/22 01/08/23 Thyroid,Pork [[place] Thyroid] 60 mg PO DAILY #0 12/13/22 01/08/23 oxyCODONE [Roxicodone] 5 mg PO Q6H PRN #30 tablet 12/13/22 01/08/23 - Allergies Allergies/Adverse Reactions: Allergies Allergy/AdvReac Type Severity Reaction Status Date / Time aspirin Allergy Unknown Verified 01/08/23 19:39 iodine Allergy Unknown Verified 01/08/23 19:39 sulfamethoxazole Allergy Unknown Verified 01/08/23 19:39 [From Bactrim] trimethoprim [From Bactrim] Allergy Unknown Verified 01/08/23 19:39 - Social History Does the pt smoke?: No Smoking Status: Never smoker Does the pt drink ETOH?: No Does the pt have substance abuse?: No - POLST Patient has POLST: Yes POLST Status: DNR PD ED PE NORMAL - General General: Alert and oriented X 3, No acute distress, Well developed/nourished - HEENT HEENT: Atraumatic, PERRL, EOMI, Moist mucous membranes, Pharynx benign - Neck Neck: Supple, no meningeal sign, No bony TTP - Cardiac Cardiac: RRR, No murmur, Strong equal pulses - Respiratory Respiratory: No respiratory distress, Clear bilaterally - Abdomen Abdomen: Soft, Non tender, Non distended - Derm Derm: Warm and dry - Extremities Extremities: Other (Yellowed bruising to left upper extremity with tenderness) - Neuro Neuro: Alert and oriented X 3, security professionals 2-12 intact, No motor deficit, No sensory deficit, Normal speech Eye Opening: Spontaneous Motor: Obeys Commands Verbal: Oriented GCS Score: 15 Results - Vitals Vitals: Vital Signs - 24 hr 01/08/23 01/08/23 01/08/23 19:36 21:04 21:46 Temperature 37.1 C Heart Rate 105 H 94 98 Respiratory 20 24 22 Rate Blood Pressure 100/65 132/71 H 121/74 O2 Saturation 91 L 97 93 Oxygen O2 Source Room air PD Medical Decision Making - ED course Complexity details: re-evaluated patient, d/w patient ED course: Patient with fall at longterm facility. Normal neuro exam. It is unclear if she hit her head but she is on a blood thinner so CT head and C-spine were obtained and reviewed And are negative for acute injury. Patient has a known left proximal humerus fracture. There is continued bruising to the area. I did reimage this site and there is angulation present. I reviewed this with on-call orthopedic surgery, Dr. Shawn Multani. He recommends Continue treatment with a sling and for pt to be seen in the orthopedic surgery clinic early this week. Patient has not yet followed up with orthopedic surgery in the last month so I did include this information in her discharge paperwork for staff at nursing facility to help arrange for. No signs of other acute injuries from her fall this evening and patient appears to be at her baseline. Departure - Departure Disposition: 01 Home, Self Care Clinical Impression: Fall at [facility], Left humeral fracture Condition: Stable Instructions: ED Fx Upper Ext Follow-Up: Remigio Mckeon MD [Provider Admit Priv/Credential] - Within 3 Days Comments: Your left arm is still quite fractured and angulated. You absolutely need to follow-up with the orthopedic surgery clinic. Please call tomorrow so they can get you in within the next few days. The CT scans of your head and neck do not show any injuries from your fall. Please make sure you are asking for help when getting around to avoid any further falls. Forms: PCP List Discharge Date/Time: 01/08/23 21:48
[2023-01-08 21:53] VITALS: BP 121/74; O2SAT 93
== END 2023-01-08 21:48 | disposition home or self-care (01) ==
LOC: EDSEX → EDUNIT# → ED 19:29
DX: S42.302A Unspecified fracture of shaft of humerus, left arm, initial encounter for closed fracture (principal); W19.XXXA Unspecified fall, initial encounter; Y92.099 Unspecified place in other non-institutional residence as the place of occurrence of the external cause; I48.91 Unspecified atrial fibrillation; Z79.01 Long term (current) use of anticoagulants
CPT/HCPCS: 36415; 99283; 99284

== ENCOUNTER 2023-01-08 21:43 | Outpatient (CLI) | payer MEDICARE, OTHER | END 2023-01-08 21:44 | disposition home or self-care (01) | LOC: EMS 21:43 | PROVIDERS: ATTEND Emergency Medicine | DX: S42.302A Unspecified fracture of shaft of humerus, left arm, initial encounter for closed fracture (principal); W19.XXXA Unspecified fall, initial encounter; F03.90 Unspecified dementia, unspecified severity, without behavioral disturbance, psychotic disturbance, mood disturbance, and anxiety | CPT/HCPCS: A0425; A0428 ==

== ENCOUNTER 2023-01-09 15:17 | Outpatient (CLI) | payer MEDICARE, OTHER ==
[2023-01-09 16:10] LABS: THYROID STIMULATING HORMONE 2.26 uIU/mL (0.34-5.60)
[2023-01-09 16:54] LABS: ALBUMIN 3.4 g/dL (3.2-5.5); ALBUMIN/GLOBULIN RATIO 1.1 (1.0-2.2); BILIRUBIN,TOTAL 1.8 mg/dL (0.2-1.0); CREATININE 0.5 mg/dL (0.6-1.3); POTASSIUM 3.8 mmol/L (3.5-4.5); TOTAL PROTEIN 6.4 g/dL (6.4-8.9)
== END 2023-01-09 15:18 | disposition home or self-care (01) ==
LOC: LAB 15:17
PROVIDERS: ATTEND Registered Nurse
DX: R79.0 Abnormal level of blood mineral (principal); E03.9 Hypothyroidism, unspecified
CPT/HCPCS: 36415; 80053; 84443

== ENCOUNTER 2023-01-19 08:00 | Outpatient (CLI) | payer MEDICARE, OTHER ==
--- NOTE | 2023-01-19 14:25 | XRAY Report ---
PROCEDURE: Shoulder 3 View LT INDICATIONS: LEFT SHOULDER FX TECHNIQUE: 4 views of the shoulder were acquired. COMPARISON: Left humerus radiographs 01/08/2023 FINDINGS: Bones: Similar alignment of the previously demonstrated angulated humeral head/neck fracture. Increa se in adjacent bony callus. No evidence of glenohumeral joint dislocation. AC joint hypertrophy prese nt as before. Soft tissues: No suspicious soft tissue calcifications. IMPRESSION: Similar alignment of the previously demonstrated humeral head/neck fracture. Reviewed by: Thomas Fitch MD on 01/19/2023 2:24 PM PDT Approved by: Thomas Fithc MD on 01/19/2023 2:24 PM PDT Station ID: [id number]
== END 2023-01-19 23:59 | disposition home or self-care (01) ==
LOC: DI.WOS 08:00
PROVIDERS: ATTEND Orthopaedic Surgery
DX: S42.212D Unspecified displaced fracture of surgical neck of left humerus, subsequent encounter for fracture with routine healing (principal)

== ENCOUNTER 2023-02-02 09:02 | Outpatient (CLI) | payer MEDICARE, OTHER | END 2023-02-02 23:59 | disposition critical access hospital (66) | LOC: EMS 09:02 | DX: R06.02 Shortness of breath (principal); R11.2 Nausea with vomiting, unspecified; R07.9 Chest pain, unspecified | CPT/HCPCS: A0425; A0429 ==

== ENCOUNTER 2023-02-02 09:10 | Emergency (ER) | payer MEDICARE, OTHER ==
--- NOTE | 2023-02-02 09:26 | ED Physician Documentation ---
PD HPI NVD - Stated complaint Stated Complaint: N/V - History obtained from History obtained from: Patient, EMS, Caregiver - History of Present Illness Timing - onset: How many hours ago (1The patient awoke and felt nauseous. She had ongoing nausea and some upper abdominal/chest discomfort. EMS was called. They noted emesis x2 after their arrival and the patient feels much better. No symptoms on route.), Today Timing - duration: Minutes Timing - details: Abrupt onset, Now resolved Associated symptoms: Chest pain. No: Fever, Abdominal pain, Near syncope / sy ncope, Loss of appetite Contributing factors: Other (The patient states she has not had any recent medication changes except for an addition of cough medicine starting yesterd ay.). No: Sick contact Similar symptoms before: Has not had sx before Recently seen: Clinic (she has been at [facility] for left humerus fract ure. Improved after few weeks and was to go back to assisted living [place] today.) Review of Systems Constitutional: denies: Fever Nose: reports: Rhinorrhea / runny nose, Congestion Throat: denies: Sore throat Cardiac: denies: Chest pain / pressure, Palpitations Respiratory: reports: Cough. denies: Wheezing GI: reports: Nausea, Vomiting (just this morning twice.). denies: Abdominal Pain, Diarrhea, Bloody / black stool Neurologic: reports: Confused (chronic dementia with good conversation in the present. Poor memory.). denies: Altered mental status, Headache PD PAST MEDICAL HISTORY - Past Medical History Cardiovascular: Atrial fibrillation (chronic) Respiratory: None Neuro: Other Endocrine/Autoimmune: HyPOthyroidism GI: GERD HEENT: None Psych: Other - Past Surgical History Past Surgical History: Yes General: Cholecystectomy, Splenectomy Ortho: Hip replacement, Knee replacement HEENT: Tonsil/Adenoidectomy - Present Medications Home Medications: Ambulatory Orders Medication Instructions Recorded Confirmed Acetaminophen [Tylenol] 650 mg PO Q4HR PRN tab 12/13/22 02/02/23 Apixaban [Eliquis] 2.5 mg PO BID #0 12/13/22 02/02/23 Calcium Carbonate [Tums (Calcium 500 mg PO TID PRN tab 12/13/22 02/02/23 Carbonate 500mg)] Cholecalciferol [Vitamin D3] 25 mcg PO DAILY tab 12/13/22 02/02/23 Furosemide [Lasix] 40 mg PO DAILY tab 12/13/22 02/02/23 Magnesium Oxide [Mag Ox] 400 mg PO 1200 tab 12/13/22 02/02/23 Metoprolol Tartrate [Lopressor] 50 mg PO BID #0 12/13/22 02/02/23 Multivitamin [Theragran] 1 tab PO DAILYWM tab 12/13/22 02/02/23 Thiamine [Vitamin B-1] 100 mg PO DAILY tab 12/13/22 02/02/23 Thyroid,Pork [[place] Thyroid] 60 mg PO DAILY #0 12/13/22 02/02/23 oxyCODONE [Roxicodone] 5 mg PO Q6H PRN #30 tablet 12/13/22 02/02/23 - Allergies Allergies/Adverse Reactions: Allergies Allergy/AdvReac Type Severity Reaction Status Date / Time aspirin Allergy Unknown Verified 02/02/23 09:24 iodine Allergy Unknown Verified 02/02/23 09:24 sulfamethoxazole Allergy Unknown Verified 02/02/23 09:24 [From Bactrim] trimethoprim [From Bactrim] Allergy Unknown Verified 02/02/23 09:24 - Social History Does the pt smoke?: No Smoking Status: Never smoker Does the pt drink ETOH?: No Does the pt have substance abuse?: No - POLST Patient has POLST: Yes POLST Status: DNR PD ED PE NORMAL - Vitals Vital signs reviewed: Yes - General General: Alert and oriented X 3, No acute distress, Well developed/nourished - Neck Neck: Supple, no meningeal sign, No adenopathy - Cardiac Cardiac: RRR, No murmur - Respiratory Respiratory: Clear bilaterally - Abdomen Abdomen: Soft, Non distended, Other (some mild tender without guarding nor percussion tender in epigastric area. ) - Female Female : No: Deferred - Rectal Rectal: No: Deferred - Derm Derm: Normal color, Warm and dry - Extremities Extremities: Normal ROM s pain, No edema, No calf tenderness / cord Results - Vitals Vitals: Vital Signs - 24 hr 02/02/23 02/02/23 02/02/23 09:18 09:50 11:35 Temperature 36.1 C L Heart Rate 93 85 74 Respiratory 15 17 22 Rate Blood Pressure 123/88 H 112/70 123/78 O2 Saturation 100 94 97 02/02/23 13:00 Temperature Heart Rate 86 Respiratory 19 Rate Blood Pressure 143/89 H O2 Saturation 100 Oxygen O2 Source Room air - EKG (time done) 09:34 EKG releavant findings:: EKG personally interpreted by author of this note. Relevant findings are: Rate: Rate (enter#) (97) Rhythm: Atrial fibrillation QRS: Normal Ischemia: Normal ST segments, Q waves (anterior). No: ST elevation c/w ischemia, ST depression Compare to prior EKG: Unchanged from prior EKG (07/15/22) - Labs Labs: Laboratory Tests 02/02/23 02/02/23 02/02/23 09:30 09:30 09:30 WBC 7.7 RBC 5.00 Hgb 15.3 Hct 47.8 H MCV 95.6 MCH 30.6 MCHC 32.0 RDW 14.1 Plt Count 294 MPV 9.3 Neut # (Auto) 2.9 Lymph # (Auto) 3.6 H Foster # (Auto) 0.9 Eos # (Auto) 0.3 Baso # (Auto) 0.0 Absolute Nucleated RBC 0.00 Nucleated RBC % 0.0 Sodium 136 Potassium 3.7 Chloride 97 L Carbon Dioxide 35 H Anion Gap 4.0 L BUN 20 Creatinine 0.5 L Estimated GFR (MDRD) 117 Glucose 99 Calcium 9.5 Magnesium 1.8 Total Bilirubin 1.5 H AST 27 ALT 18 Alkaline Phosphatase 121 Troponin I High Sens 17.7 H* B-Natriuretic Peptide 132 H Total Protein 6.7 Albumin 3.6 Globulin 3.1 Albumin/Globulin Ratio 1.2 Lipase 17 - Rads (name of study) cxr Relevant Findings:: Prelim report reviewed, EMP independent interpretation of test (no infiltrates, effusions, nor PTX. No signs of CHF. ) PD Medical Decision Making - ED course Complexity details: considered differential, d/w patient Reviewed Lab Results: ECG without ischemic changes. CXR is clear. Her b lood count on my review is normal range, as are electrolytes and blod sugar. Troponiin is insignificantly elevated above normal at 17 (range up to 14). She is without symptoms here. Seems possible had some congestion/reflux with nausea and felt better once vomitined. no abd pain nor tenderness to suggest GB/pancreatitis, Clear lungs without CHF/pneumonia. she had had cough and congestion the past week or so, and the episdoe this morning sould be her nausea related to throat congestion and then better once vomited/cleared the phlegm. No symptoms here in ER. She is happy to be dischaged as labs are not showing acute process. Departure - Departure Disposition: 01 Home, Self Care Clinical Impression: Chest discomfort, Nausea and vomiting Condition: Stable Record reviewed to determine appropriate education?: Yes Instructions: ED Nausea Vomiting Follow-Up: Olinda Maya of [Primary Care Provider] - Comments: Unclear the cause of your symptoms this morning. No abnormality seen on your EKG, blood test or chest x-ray. It is good that you are feeling well now. Recheck if recurrent symptoms. Forms: PCP List Discharge Date/Time: 02/02/23 13:09
[2023-02-02 09:37] LABS: BASOPHILS % (AUTO) 0.5 %; EOSINOPHILS # (AUTO) 0.3 10^3/uL (0.0-0.7); EOSINOPHILS % (AUTO) 3.2 %; HCT - HEMATOCRIT 47.8 % (37.0-47.0); HGB - HEMOGLOBIN 15.3 g/dL (12.0-16.0); LYMPHOCYTES # (AUTO) 3.6 10^3/uL (1.5-3.5); LYMPHOCYTES % (AUTO) 46.6 %; MEAN CORPUSCULAR HEMOGLOBIN 30.6 pg (27.0-31.0); MEAN CORPUSCULAR VOLUME 95.6 fL (81.0-99.0); MEAN PLATELET VOLUME 9.3 fL (7.9-10.8); MONOCYTES # (AUTO) 0.9 10^3/uL (0.0-1.0); MONOCYTES % (AUTO) 11.7 %; NEUTROPHILS # (AUTO) 2.9 10^3/uL (1.5-6.6); NEUTROPHILS % (AUTO) 37.7 %; PLT - PLATELET COUNT 294 10^3/uL (130-450); RED CELL DISTRIBUTION WIDTH 14.1 % (12.0-15.0); WHITE BLOOD COUNT 7.7 x10^3/uL (4.8-10.8)
[2023-02-02 09:56] LABS: ALBUMIN 3.6 g/dL (3.2-5.5); ALBUMIN/GLOBULIN RATIO 1.2 (1.0-2.2); BILIRUBIN,TOTAL 1.5 mg/dL (0.2-1.0); CALCIUM 9.5 mg/dL (8.5-10.3); CREATININE 0.5 mg/dL (0.6-1.3); MAGNESIUM 1.8 mg/dL (1.7-2.3); POTASSIUM 3.7 mmol/L (3.5-4.5); TOTAL PROTEIN 6.7 g/dL (6.4-8.9)
--- NOTE | 2023-02-02 10:07 | XRAY Report ---
PROCEDURE: Chest 1 View X-Ray INDICATIONS: cough for 8 days TECHNIQUE: One view of the chest was acquired. COMPARISON: 12/12/2022 FINDINGS: Surgical changes and devices: Left upper quadrant and upper mediastinal surgical clips. Lungs and pleura: Low lung volumes. No dense consolidation or pleural effusion. Mediastinum: Normal heart size. Bones and chest wall: Degenerative changes, and seen left proximal left humerus fracture. IMPRESSION: No dense airspace consolidation or pleural effusion. Limited portable single view study with low lung volumes. Partially seen left proximal humerus fracture. Reviewed by: Raymon Britt MD on 02/02/2023 10:06 AM RUST Approved by: Raymon Britt MD on 02/02/2023 10:06 AM RUST Station ID: [id number]
[2023-02-02 10:10] LABS: TROPONIN I HIGH SENSITIVITY 17.7 ng/L (2.3-14.8)
[2023-02-02 13:05] VITALS: BP 143/89; O2SAT 100
== END 2023-02-02 13:09 | disposition home or self-care (01) ==
LOC: EDUNIT# → ED 09:10
DX: R07.89 Other chest pain (principal); R11.2 Nausea with vomiting, unspecified; I48.20 Chronic atrial fibrillation, unspecified; E03.9 Hypothyroidism, unspecified; K21.9 Gastro-esophageal reflux disease without esophagitis; Z79.01 Long term (current) use of anticoagulants; Z79.899 Other long term (current) drug therapy
CPT/HCPCS: 36415; 80053; 83690; 83735; 83880; 84484; 85025; 93005; 99283; 99284

== ENCOUNTER 2023-02-02 13:12 | Outpatient (CLI) | payer MEDICARE, OTHER | END 2023-02-02 23:59 | LOC: EMS 13:12 | PROVIDERS: ATTEND Emergency Medicine | DX: Z51.5 Encounter for palliative care (principal); R53.1 Weakness; F03.90 Unspecified dementia, unspecified severity, without behavioral disturbance, psychotic disturbance, mood disturbance, and anxiety | CPT/HCPCS: A0425; A0428 ==

== ENCOUNTER 2023-02-08 11:37 | Outpatient (CLI) | payer MEDICARE, OTHER ==
--- NOTE | 2023-02-08 14:02 | XRAY Report ---
PROCEDURE: Hand 3 View LT INDICATIONS: LEFT HAND PAIN TECHNIQUE: 3 view(s) of the hand(s) acquired. COMPARISON: None FINDINGS: Bones: Generalized decreased osseous mineralization present. Advanced polyarticular arthritic change s in the interphalangeal joints include degenerative ankylosis at the third PIP. Soft tissues: No suspicious soft tissue calcifications. 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 Osteopenia Reviewed by: Jase Browning MD on 02/08/2023 1:01 PM AKST Approved by: Jase Browning MD on 02/08/2023 1:01 PM AKST Station ID: [id number]
== END 2023-02-08 11:38 | disposition home or self-care (01) ==
LOC: DI 11:37
PROVIDERS: ATTEND Registered Nurse
DX: M19.042 Primary osteoarthritis, left hand (principal); M85.842 Other specified disorders of bone density and structure, left hand

== ENCOUNTER 2023-03-02 12:23 | Outpatient (CLI) | payer MEDICARE, OTHER ==
--- NOTE | 2023-03-02 13:32 | XRAY Report ---
PROCEDURE: Chest 2 View X-Ray INDICATIONS: COUGH TECHNIQUE: 2 views of the chest were acquired. COMPARISON: 02/02/2023. FINDINGS: Surgical changes and devices: Subphrenic left-sided surgical clips.. Lungs and pleura: No pleural effusions or pneumothorax. Lungs are clear. Chronic mild interstitial prominence. Elevation of right hemidiaphragm, as before. Mediastinum: Mediastinal contours appear normal. Heart size is normal. Bones and chest wall: No suspicious bony lesions. Overlying soft tissues appear unremarkable. IMPRESSION: No acute cardiopulmonary process. Reviewed by: Miguel Simeon MD on 03/02/2023 1:30 PM PST Approved by: Miguel Simeon MD on 03/02/2023 1:30 PM PST Station ID: [id number]
== END 2023-03-02 12:24 | disposition home or self-care (01) ==
LOC: DI 12:23
PROVIDERS: ATTEND Family Medicine
DX: R05.9 Cough, unspecified (principal)

== ENCOUNTER 2023-03-03 16:10 | Outpatient (CLI) | payer MEDICARE, OTHER | END 2023-03-03 16:11 | disposition critical access hospital (66) | LOC: EMS 16:10 | DX: S00.83XA Contusion of other part of head, initial encounter (principal); W22.8XXA Striking against or struck by other objects, initial encounter; Y92.098 Other place in other non-institutional residence as the place of occurrence of the external cause; Z79.01 Long term (current) use of anticoagulants | CPT/HCPCS: A0425; A0429 ==

== ENCOUNTER 2023-03-03 16:32 | Emergency (ER) | payer MEDICARE, OTHER ==
--- NOTE | 2023-03-03 16:37 | ED Physician Documentation ---
PD HPI HEADACHE - Stated complaint Stated Complaint: HEAD INJ - History obtained from History obtained from: Patient - Additional information Additional information: Yaa 87-year-old woman on Eliquis who was in her wheelchair today. The w heelchair hit a bump and then she hit her left occiput on a door frame. She did not fall out of the wheelchair. She did not feel injured. She does not have a headache. PD PAST MEDICAL HISTORY - Past Medical History Cardiovascular: Atrial fibrillation (chronic) Respiratory: None Neuro: Other Endocrine/Autoimmune: HyPOthyroidism GI: GERD HEENT: None Psych: Other - Past Surgical History Past Surgical History: Yes General: Cholecystectomy, Splenectomy Ortho: Hip replacement, Knee replacement HEENT: Tonsil/Adenoidectomy - Present Medications Home Medications: Ambulatory Orders Medication Instructions Recorded Confirmed Acetaminophen [Tylenol] 650 mg PO Q4HR PRN tab 12/13/22 02/02/23 Apixaban [Eliquis] 2.5 mg PO BID #0 12/13/22 02/02/23 Calcium Carbonate [Tums (Calcium 500 mg PO TID PRN tab 12/13/22 02/02/23 Carbonate 500mg)] Cholecalciferol [Vitamin D3] 25 mcg PO DAILY tab 12/13/22 02/02/23 Furosemide [Lasix] 40 mg PO DAILY tab 12/13/22 02/02/23 Magnesium Oxide [Mag Ox] 400 mg PO 1200 tab 12/13/22 02/02/23 Metoprolol Tartrate [Lopressor] 50 mg PO BID #0 12/13/22 02/02/23 Multivitamin [Theragran] 1 tab PO DAILYWM tab 12/13/22 02/02/23 Thiamine [Vitamin B-1] 100 mg PO DAILY tab 12/13/22 02/02/23 Thyroid,Pork [[place] Thyroid] 60 mg PO DAILY #0 12/13/22 02/02/23 oxyCODONE [Roxicodone] 5 mg PO Q6H PRN #30 tablet 12/13/22 02/02/23 - Allergies Allergies/Adverse Reactions: Allergies Allergy/AdvReac Type Severity Reaction Status Date / Time aspirin Allergy Unknown Verified 03/03/23 16:35 iodine Allergy Unknown Verified 03/03/23 16:35 sulfamethoxazole Allergy Unknown Verified 03/03/23 16:35 [From Bactrim] trimethoprim [From Bactrim] Allergy Unknown Verified 03/03/23 16:35 - Social History Does the pt smoke?: No Smoking Status: Never smoker Does the pt drink ETOH?: No Does the pt have substance abuse?: No - POLST Patient has POLST: Yes POLST Status: DNR PD ED PE NORMAL - Vitals Vital signs reviewed: Yes - General General: Alert and oriented X 3, No acute distress - HEENT HEENT: PERRL, EOMI, Other (About a quarter size contusion on the left occiput which is not tender) - Neck Neck: Supple, no meningeal sign, No bony TTP - Neuro Neuro: Alert and oriented X 3, No motor deficit, No sensory deficit, Normal speech Eye Opening: Spontaneous Motor: Obeys Commands Verbal: Oriented GCS Score: 15 - Psych Psych: Normal mood, Normal affect Results - Vitals Vitals: Oxygen O2 Source Room air PD Medical Decision Making - ED course ED course: 87-year-old woman who is anticoagulated brought in for what seemingly is a minor head injury. I offered and recommended CT scanning, but we discussed it for a while and she says that if the CAT scan was positive she would not intervene upon it, would not want reversal of anticoagulation, transfer for neurosurgical consultation etc. As such she declined advanced imaging. Departure - Departure Disposition: 01 Home, Self Care Clinical Impression: Head injury Qualifiers: Encounter type: initial encounter Qualified Code(s): S09.90XA - Unspecified injury of head, initial encounter Condition: Good Record reviewed to determine appropriate education?: Yes Instructions: ED Head Injury Closed Comments: Remedios declined head CT today noting that if she were to have something serious (which I do not think she has) she would not intervene upon it anyways and would not want neurosurgical intervention etc. She is always welcome to return if worse or if her symptoms change.
[2023-03-03 16:41] VITALS: BP 134/99; O2SAT 94
== END 2023-03-03 17:33 | disposition home or self-care (01) ==
LOC: EDBD → EDUNIT# → ED 16:32
DX: S09.90XA Unspecified injury of head, initial encounter (principal); I48.91 Unspecified atrial fibrillation; Z79.01 Long term (current) use of anticoagulants; Z66 Do not resuscitate
CPT/HCPCS: 99283

== ENCOUNTER 2023-05-16 18:30 | Outpatient (CLI) | payer MEDICARE, OTHER | END 2023-05-16 23:59 | disposition EMS.NT | LOC: EMS 18:30 | DX: I10 Essential (primary) hypertension (principal) ==

== ENCOUNTER 2023-06-12 09:24 | Outpatient (CLI) | payer MEDICARE, OTHER | END 2023-06-12 09:25 | disposition critical access hospital (66) | LOC: EMS 09:24 | DX: M25.512 Pain in left shoulder (principal); J34.89 Other specified disorders of nose and nasal sinuses; R20.8 Other disturbances of skin sensation | CPT/HCPCS: A0425; A0429 ==

== ENCOUNTER 2023-06-12 09:43 | Emergency (ER) | payer MEDICARE, OTHER ==
[2023-06-12 10:39] LABS: BASOPHILS # (AUTO) 0.1 10^3/uL (0.0-0.1); BASOPHILS % (AUTO) 0.6 %; EOSINOPHILS # (AUTO) 0.5 10^3/uL (0.0-0.7); EOSINOPHILS % (AUTO) 5.9 %; HCT - HEMATOCRIT 45.1 % (37.0-47.0); HGB - HEMOGLOBIN 14.5 g/dL (12.0-16.0); LYMPHOCYTES # (AUTO) 3.3 10^3/uL (1.5-3.5); LYMPHOCYTES % (AUTO) 41.6 %; MEAN CORPUSCULAR HEMOGLOBIN 31.3 pg (27.0-31.0); MEAN CORPUSCULAR HGB CONC 32.2 g/dL (32.0-36.0); MEAN CORPUSCULAR VOLUME 97.4 fL (81.0-99.0); MEAN PLATELET VOLUME 9.1 fL (7.9-10.8); MONOCYTES # (AUTO) 0.9 10^3/uL (0.0-1.0); MONOCYTES % (AUTO) 11.5 %; NEUTROPHILS # (AUTO) 3.2 10^3/uL (1.5-6.6); NEUTROPHILS % (AUTO) 40.1 %; PLT - PLATELET COUNT 253 10^3/uL (130-450); RED BLOOD COUNT 4.63 10^6/uL (4.20-5.40); RED CELL DISTRIBUTION WIDTH 15.7 % (12.0-15.0); WHITE BLOOD COUNT 7.9 x10^3/uL (4.8-10.8)
--- NOTE | 2023-06-12 10:39 | XRAY Report ---
PROCEDURE: Chest 1V INDICATIONS: cough/phlegm x 3 weeks TECHNIQUE: One view of the chest was acquired. COMPARISON: 03/02/2023. FINDINGS: Surgical changes and devices: Clips projecting over the upper left mediastinum, left upper quadrant clips. Lungs and pleura: Elevation of right hemidiaphragm, as before. Mild diffuse interstitial prominence, chronic. Mediastinum: Mediastinal contours appear normal. Mild cardiomegaly. Bones and chest wall: No suspicious bony lesions. Overlying soft tissues appear unremarkable. IMPRESSION: Mild cardiomegaly. Chronic diffuse interstitial prominence. Chronic elevation of right hemidiaphragm. Reviewed by: Miguel Simeon MD on 06/12/2023 10:38 AM PDT Approved by: Miguel Simeon MD on 06/12/2023 10:38 AM PDT Station ID: [id number]
--- NOTE | 2023-06-12 10:42 | XRAY Report ---
PROCEDURE: Shoulder 2+V LT INDICATIONS: pain on ROM TECHNIQUE: 3 views of the shoulder were acquired. COMPARISON: 01/19/2023. FINDINGS: Bones: Comminuted angulated humeral neck fracture with overriding, as before, with suggestion of pot ential nonunion. No dislocation. No suspicious bony lesions. Visualized ribs appear intact. Soft tissues: No suspicious soft tissue calcifications. The visualized lungs are within normal limi ts. 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 Reviewed by: Miguel Simeon MD on 06/12/2023 10:40 AM PDT Approved by: Miguel Simeon MD on 06/12/2023 10:40 AM PDT Station ID: [id number]
[2023-06-12 10:57] LABS: TROPONIN I HIGH SENSITIVITY 11.1 ng/L (2.3-14.8)
[2023-06-12 11:13] LABS: ALBUMIN 3.9 g/dL (3.2-5.5); ALBUMIN/GLOBULIN RATIO 1.4 (1.0-2.2); BILIRUBIN,TOTAL 1.3 mg/dL (0.2-1.0); CALCIUM 9.2 mg/dL (8.5-10.3); CREATININE 0.6 mg/dL (0.6-1.3); POTASSIUM 4.1 mmol/L (3.5-4.5); TOTAL PROTEIN 6.6 g/dL (6.4-8.9)
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
[2023-06-12 11:49] LABS: B. PARAPERTUSSIS- RESP PCR PAN NOT DETECTED; B. PERTUSSIS- RESP PCR PANEL NOT DETECTED; C. PNEUMONIAE- RESP PCR PANEL NOT DETECTED; CORONAVIRUS 229E-RESP PCR NOT DETECTED; CORONAVIRUS HKU1-RESP PCR NOT DETECTED; CORONAVIRUS NL63-RESP PCR NOT DETECTED; CORONAVIRUS OC43-RESP PCR NOT DETECTED; HUMAN METAPNEUMOVIRUS NOT DETECTED; INFLUENZA A- RESP PCR PANEL NOT DETECTED; INFLUENZA B - RESP PCR PANEL NOT DETECTED; M. PNEUMONIAE- RESP PCR PANEL NOT DETECTED; PARAINFLUENZA VIRUS 1 NOT DETECTED; PARAINFLUENZA VIRUS 2 NOT DETECTED; PARAINFLUENZA VIRUS 3 NOT DETECTED; PARAINFLUENZA VIRUS 4 NOT DETECTED; RHINOVIRUS/ENTEROVIRUS NOT DETECTED; RSV- RESP PCR PANEL NOT DETECTED; SARS-CoV-2 -RESP PCR PANEL NOT DETECTED
[2023-06-12 12:14] VITALS: O2SAT 93
[2023-06-12 12:54] VITALS: BP 150/86
== END 2023-06-12 12:44 | disposition home or self-care (01) ==
LOC: EDUNIT# → ED 09:43
DX: S42.212A Unspecified displaced fracture of surgical neck of left humerus, initial encounter for closed fracture (principal); X58.XXXA Exposure to other specified factors, initial encounter; Y92.099 Unspecified place in other non-institutional residence as the place of occurrence of the external cause; R05.9 Cough, unspecified; R07.9 Chest pain, unspecified; I48.91 Unspecified atrial fibrillation; E03.9 Hypothyroidism, unspecified; Z79.01 Long term (current) use of anticoagulants; Z79.899 Other long term (current) drug therapy; Z66 Do not resuscitate
CPT/HCPCS: 36415; 80053; 83880; 84484; 85025; 87633; 93005; 99284

== ENCOUNTER 2023-06-12 12:47 | Outpatient (CLI) | payer MEDICARE, OTHER | END 2023-06-12 23:59 | disposition home or self-care (01) | LOC: EMS 12:47 | PROVIDERS: ATTEND Emergency Medicine | DX: F03.90 Unspecified dementia, unspecified severity, without behavioral disturbance, psychotic disturbance, mood disturbance, and anxiety (principal); R41.0 Disorientation, unspecified; S42.302D Unspecified fracture of shaft of humerus, left arm, subsequent encounter for fracture with routine healing | CPT/HCPCS: A0425; A0428 ==

== ENCOUNTER 2023-06-20 10:15 | Outpatient (CLI) | payer MEDICARE, OTHER | END 2023-06-20 10:30 | disposition home or self-care (01) | LOC: LAB.N 10:15 | PROVIDERS: ATTEND Nurse Practitioner | DX: R41.0 Disorientation, unspecified (principal) | CPT/HCPCS: 87086 ==

== ENCOUNTER 2023-10-08 11:43 | Outpatient (CLI) | payer MEDICARE, OTHER | END 2023-10-08 23:59 | disposition critical access hospital (66) | LOC: EMS 11:43 | DX: R33.9 Retention of urine, unspecified (principal) | CPT/HCPCS: A0425; A0429 ==

== ENCOUNTER 2023-10-08 12:04 | Emergency (ER) | payer MEDICARE, OTHER ==
--- NOTE | 2023-10-08 12:12 | ED Physician Documentation ---
PD HPI FEMALE - Stated complaint Stated Complaint: - History obtained from History obtained from: Patient, EMS - History of Present Illness Timing - onset: How many days ago (today/overnight.) Timing - details: Gradual onset (had noted some heistancy with urination last 1- 2 days then unable to urinate at all overnight/this AM. No fever, nausea, hematuria.), Still present Associated symptoms: Urinary frequency. No: Fever, Vaginal bleeding, Genital sore/lesion, Dysuria Similar symptoms before: Has not had sx before Review of Systems Constitutional: denies: Fever, Chills GI: denies: Abdominal Pain, Vomiting, Diarrhea : reports: Hesitancy. denies: Frequency, Hematuria, Discharge PD PAST MEDICAL HISTORY - Past Medical History Cardiovascular: Atrial fibrillation Respiratory: None Neuro: Other Endocrine/Autoimmune: HyPOthyroidism GI: GERD HEENT: None Psych: Other - Past Surgical History Past Surgical History: Yes General: Cholecystectomy, Splenectomy Ortho: Hip replacement, Knee replacement HEENT: Tonsil/Adenoidectomy - Present Medications Home Medications: Ambulatory Orders Medication Instructions Recorded Confirmed Acetaminophen [Tylenol] 650 mg PO Q4HR PRN tab 12/13/22 06/12/23 Apixaban [Eliquis] 2.5 mg PO BID #0 12/13/22 06/12/23 Calcium Carbonate [Tums (Calcium 500 mg PO TID PRN tab 12/13/22 06/12/23 Carbonate 500mg)] Cholecalciferol [Vitamin D3] 25 mcg PO DAILY tab 12/13/22 06/12/23 Furosemide [Lasix] 40 mg PO DAILY tab 12/13/22 06/12/23 Magnesium Oxide [Mag Ox] 400 mg PO 1200 tab 12/13/22 06/12/23 Multivitamin [Theragran] 1 tab PO DAILYWM tab 12/13/22 06/12/23 Thiamine [Vitamin B-1] 100 mg PO DAILY tab 12/13/22 06/12/23 Thyroid,Pork [[place] Thyroid] 60 mg PO DAILY #0 12/13/22 06/12/23 oxyCODONE [Roxicodone] 5 mg PO Q6H PRN #30 tablet 12/13/22 06/12/23 Metoprolol Tartrate [Lopressor] 25 mg PO BID 06/12/23 06/12/23 Thyroid,Pork [[place] Thyroid] 06/12/23 traZODone [Desyrel] 25 mg PO DAILY 06/12/23 06/12/23 cephALEXin [Keflex] 500 mg PO TID #20 cap 10/08/23 - Allergies Allergies/Adverse Reactions: Allergies Allergy/AdvReac Type Severity Reaction Status Date / Time aspirin Allergy Unknown Verified 10/08/23 12:10 iodine Allergy Unknown Verified 10/08/23 12:10 sulfamethoxazole Allergy Unknown Verified 10/08/23 12:10 [From Bactrim] trimethoprim [From Bactrim] Allergy Unknown Verified 10/08/23 12:10 - Social History Does the pt smoke?: No Smoking Status: Never smoker Does the pt drink ETOH?: No Does the pt have substance abuse?: No - Immunizations Immunizations are current?: Yes - POLST Patient has POLST: Yes POLST Status: DNR PD ED PE NORMAL - Vitals Vital signs reviewed: Yes - General General: Alert and oriented X 3, No acute distress - Abdomen Abdomen: Soft, Non tender - Back Back: No CVA TTP Results - Vitals Vitals: Vital Signs - 24 hr 10/08/23 10/08/23 12:12 14:16 Temperature 36.6 C Heart Rate 80 80 Respiratory 17 17 Rate Blood Pressure 160/90 H 166/100 H O2 Saturation 95 95 Oxygen O2 Source Room air - Labs Labs: Laboratory Tests 10/08/23 10/08/23 10/08/23 13:00 13:05 13:05 WBC 13.9 H RBC 4.54 Hgb 13.6 Hct 43.1 MCV 94.9 MCH 30.0 MCHC 31.6 L RDW 14.2 Plt Count 278 MPV 8.9 Neut # (Auto) 8.5 H Lymph # (Auto) 3.3 [place] # (Auto) 1.1 H Eos # (Auto) 1.0 H Baso # (Auto) 0.1 Absolute Nucleated RBC 0.00 Nucleated RBC % 0.0 Sodium 136 Potassium 3.6 Chloride 98 L Carbon Dioxide 33 H Anion Gap 5.0 L BUN 14 Creatinine 0.6 Estimated GFR (MDRD) 94 Glucose 114 H Calcium 9.2 Magnesium 1.8 Total Bilirubin 0.9 AST 21 ALT 12 Alkaline Phosphatase 83 Total Protein 7.0 Albumin 4.3 Globulin 2.7 Albumin/Globulin Ratio 1.6 Lipase 35 Urine Color LIGHT YELLOW Urine Clarity CLOUDY Urine pH 7.0 Ur Specific [place] 1.010 Urine Protein NEGATIVE Urine Glucose (UA) NEGATIVE Urine Ketones NEGATIVE Urine Occult Blood SMALL H Urine Nitrite POSITIVE H Urine Bilirubin NEGATIVE Urine Urobilinogen 0.2 (NORMAL) Ur Leukocyte Esterase LARGE H Urine RBC 0-5 Urine WBC >25 H Urine WBC Clumps PRESENT Ur Squamous Epith Cells FEW Squamous Urine Bacteria Moderate H Ur Microscopic Review INDICATED Urine Culture Comments INDICATED PD Medical Decision Making - ED course Complexity details: reviewed results (UA c/w UTI. ), considered differential (having difficulty urinating/ retention. Likely UTI for this. ), d/w patient ED course: pt tried urinating but none out. Bladder scan with about 700 ml. Cabrera placed and urine out without clots nor blood. Pt feeling much better. Presume underlying parital retention given the amount of urine there without too much pain. Departure - Departure Disposition: 01 Home, Self Care Clinical Impression: UTI (urinary tract infection), Acute urinary retention Condition: Stable Record reviewed to determine appropriate education?: Yes Instructions: ED Retention Urinary Female, ED UTI Cystitis Female Prescriptions: cephALEXin [Keflex] 500 mg PO TID #20 cap Comments: Your urine does show signs of infection and this is likely the cause for the inability for the bladder to relax enough to get the urine out. There can also be inflammation around the outlet to the bladder. You did have a fair amount of urine in the bladder that was relieved with the catheter. Until the conditions of the infection and such are improved, it is less likely would be able to have spontaneous urinating right now. As such we should keep the catheter in for several days or more while treating the UTI and subsequently can remove the catheter and see if the mechanisms worked better. I wrote a prescription for cephalexin to take 3 times daily for the next 7 days. Stay well-hydrated otherwise and continue your other usual medicines. Will keep the catheter in place for now. Follow-up with your primary care and/or urology or walk-in clinic for catheter removal and presume will be about 4 to 5 days. We did check blood tests of your blood count and chemistry panel. Your kidney function is good so the infection has not affected that. Your white count shows some elevation consistent with an infection. We will do a urine culture and this should result in a couple of days. Will call if there is any need to amend the antibiotic choice based on the culture results. Forms: PCP List Discharge Date/Time: 10/08/23 17:29
[2023-10-08 12:22] VITALS: O2SAT 95
--- NOTE | 2023-10-08 12:33 | XRAY Report ---
PROCEDURE: Chest 1V INDICATIONS: cough for 2 weeks TECHNIQUE: One view of the chest was acquired. COMPARISON: 06/12/2023 FINDINGS: Surgical changes and devices: Several postoperative clips are seen. Lungs and pleura: An incomplete inspiratory result is noted, with low lung volumes and crowding of t he vascular markings. No focal infiltrates are seen. No large pneumothorax or large pleural effusion can be seen. There is stable elevation of the right hemidiaphragm. Mediastinum: Mediastinal contours appear normal. Heart size is normal. Bones and chest wall: No suspicious bony lesions. Age-appropriate degenerative changes are seen. T here is a remote left humeral neck fracture. Overlying soft tissues appear unremarkable. IMPRESSION: Low lung volumes, without an acute cardiopulmonary abnormality seen. No focal infiltrates are seen. Stable elevation of the right hemidiaphragm. Additional findings: Remote left humeral neck fracture Postoperative and degenerative changes Reviewed by: Ilan Lockwood MD on 10/08/2023 11:32 AM TRENT Approved by: Ilan Lockwood MD on 10/08/2023 11:32 AM TRENT Station ID: [id number]
[2023-10-08 13:14] LABS: BASOPHILS # (AUTO) 0.1 10^3/uL (0.0-0.1); BASOPHILS % (AUTO) 0.4 %; EOSINOPHILS % (AUTO) 6.9 %; HCT - HEMATOCRIT 43.1 % (37.0-47.0); HGB - HEMOGLOBIN 13.6 g/dL (12.0-16.0); LYMPHOCYTES # (AUTO) 3.3 10^3/uL (1.5-3.5); LYMPHOCYTES % (AUTO) 23.8 %; MEAN CORPUSCULAR HGB CONC 31.6 g/dL (32.0-36.0); MEAN CORPUSCULAR VOLUME 94.9 fL (81.0-99.0); MEAN PLATELET VOLUME 8.9 fL (7.9-10.8); MONOCYTES # (AUTO) 1.1 10^3/uL (0.0-1.0); MONOCYTES % (AUTO) 7.6 %; NEUTROPHILS # (AUTO) 8.5 10^3/uL (1.5-6.6); NEUTROPHILS % (AUTO) 60.9 %; PLT - PLATELET COUNT 278 10^3/uL (130-450); RED BLOOD COUNT 4.54 10^6/uL (4.20-5.40); RED CELL DISTRIBUTION WIDTH 14.2 % (12.0-15.0); WHITE BLOOD COUNT 13.9 x10^3/uL (4.8-10.8)
[2023-10-08 13:22] LABS: BILIRUBIN,URINE NEGATIVE (NEGATIVE); GLUCOSE, URINE (UA) NEGATIVE (NEGATIVE); KETONES,URINE (UA) NEGATIVE (NEGATIVE); LEUKOCYTE ESTERASE, URINE LARGE (NEGATIVE); NITRITE,URINE POSITIVE (NEGATIVE); OCCULT BLOOD,URINE SMALL (NEGATIVE); PROTEIN,URINE NEGATIVE (NEGATIVE); UROBILINOGEN,URINE 0.2 (NORMAL) E.U./dL (NORMAL)
[2023-10-08 13:28] LABS: CLARITY,URINE CLOUDY (CLEAR)
[2023-10-08 13:36] LABS: BACTERIA,URINE Moderate /HPF (None Seen); RBC,URINE 0-5 /HPF (0-5); SQUAMOUS EPITHELIAL CELL,UR FEW Squamous (<= Few); WBC CLUMPS,URINE PRESENT; WBC,URINE >25 /HPF (0-5)
[2023-10-08 13:40] LABS: ALBUMIN 4.3 g/dL (3.2-5.5); ALBUMIN/GLOBULIN RATIO 1.6 (1.0-2.2); BILIRUBIN,TOTAL 0.9 mg/dL (0.2-1.0); CALCIUM 9.2 mg/dL (8.5-10.3); CREATININE 0.6 mg/dL (0.6-1.3); MAGNESIUM 1.8 mg/dL (1.7-2.3); POTASSIUM 3.6 mmol/L (3.5-4.5)
[2023-10-08] MEDS: cephALEXin 250 MG CAPSULE PO STA (13:55)
[2023-10-08 14:45] VITALS: BP 166/100
--- NOTE | 2023-10-11 16:33 | ED Physician Documentation ---
ED Addendum - Addendum Addendum: 10/11/23 16:32 Urine culture reviewed, the isolate is resistant to all oral options. Review of the chart shows that she had urinary retention so resolving that may go a long way to resolve the infection, that said I did want to talk with the patient. I tried calling the number on the chart and it went to a voicemail with a different name on it subsequently left a voicemail for her son to call us back to.
== END 2023-10-08 17:29 | disposition home or self-care (01) ==
LOC: EDUNIT# → ED 12:04
DX: N39.0 Urinary tract infection, site not specified (principal); R33.9 Retention of urine, unspecified; I48.91 Unspecified atrial fibrillation; E03.9 Hypothyroidism, unspecified; Z79.01 Long term (current) use of anticoagulants; Z79.899 Other long term (current) drug therapy
CPT/HCPCS: 36415; 51702; 51798; 71045; 80053; 81001; 83690; 83735; 85025; 87086; 99284; A9270; 81003; 87077; 87181

== ENCOUNTER 2023-10-08 17:18 | Outpatient (CLI) | payer MEDICARE, OTHER | END 2023-10-08 23:59 | disposition home or self-care (01) | LOC: EMS 17:18 | PROVIDERS: ATTEND Emergency Medicine | DX: R41.0 Disorientation, unspecified (principal) | CPT/HCPCS: A0425; A0428 ==

== ENCOUNTER 2023-10-14 13:51 | Outpatient (CLI) | payer MEDICARE, OTHER | END 2023-10-14 23:59 | disposition critical access hospital (66) | LOC: EMS 13:51 | DX: R41.82 Altered mental status, unspecified (principal); R31.9 Hematuria, unspecified; N39.0 Urinary tract infection, site not specified | CPT/HCPCS: A0425; A0429 ==

== ENCOUNTER 2023-10-14 14:15 | Emergency (ER) | payer MEDICARE, OTHER ==
[2023-10-14 14:40] VITALS: BP 147/110; O2SAT 91
[2023-10-14 15:04] LABS: BASOPHILS # (AUTO) 0.1 10^3/uL (0.0-0.1); EOSINOPHILS # (AUTO) 0.7 10^3/uL (0.0-0.7); EOSINOPHILS % (AUTO) 8.2 %; HCT - HEMATOCRIT 43.4 % (37.0-47.0); LYMPHOCYTES # (AUTO) 3.8 10^3/uL (1.5-3.5); MEAN CORPUSCULAR HEMOGLOBIN 30.6 pg (27.0-31.0); MEAN CORPUSCULAR HGB CONC 32.3 g/dL (32.0-36.0); MONOCYTES # (AUTO) 0.8 10^3/uL (0.0-1.0); MONOCYTES % (AUTO) 9.3 %; NEUTROPHILS # (AUTO) 3.6 10^3/uL (1.5-6.6); NEUTROPHILS % (AUTO) 39.3 %; PLT - PLATELET COUNT 281 10^3/uL (130-450); RED BLOOD COUNT 4.57 10^6/uL (4.20-5.40); RED CELL DISTRIBUTION WIDTH 14.2 % (12.0-15.0); WHITE BLOOD COUNT 9.1 x10^3/uL (4.8-10.8)
[2023-10-14 15:08] LABS: MAGNESIUM 1.7 mg/dL (1.7-2.3)
--- NOTE | 2023-10-14 15:09 | ED Physician Documentation ---
History of Present Illness - Stated complaint Stated Complaint: AMS/ - Chief complaint Chief Complaint: Abd Pain - History obtained from History obtained from: Patient - History of Present Illness Timing: Prior to arrival Pain level max: 0 - Additonal information Additional information: Patient is an 88 year old female presenting to the emergency department with past medical history of hypertension, urinary retention, atrial fibrillation on Eliquis, hypothyroidism and CHF. Patient presents to the emergency department with directions from [place] that she was having changes in mental status. About 1 week ago patient was here in the emergency department for urinary retention a Cabrera catheter was placed at that time and patient has follow-up with urology this Monday. She notes she has a lot of irritability with this area but has had clear urine. Patient on my evaluation was ANO x 3 and able to provide history. She is reporting they stuck a bunch of stuff in her referring to the Cabrera catheter that she does 1 out at this time. Patient not reporting any abnormal statements here in ED and appears that baseline. Labs here in the emergency department are reassuring no leukocytosis no signs of anemia. Urine analysis obtained does show blood in urine but no signs of obstructive process here in the emergency department Cabrera bag appears to be draining well. No persistent signs of UTI including no leukocytes in urine. Patient eating and drinking well here in the emergency department she remains at baseline in no acute distress. Given reassuring workup and patient has follow- up with urology in outpatient setting early next week instructed patient to keep this appointment and return to the emergency department with any abdominal pain nausea vomiting fevers changes in color of urine decreased urine output. Review of Systems Constitutional: reports: Reviewed and negative. denies: Fever, Chills Eyes: reports: Reviewed and negative Ears: reports: Reviewed and negative Nose: reports: Reviewed and negative Throat: reports: Reviewed and negative Cardiac: reports: Reviewed and negative Respiratory: reports: Reviewed and negative GI: reports: Reviewed and negative : reports: Reviewed and negative Skin: reports: Reviewed and negative Musculoskeletal: reports: Reviewed and negative Neurologic: reports: Reviewed and negative Psychiatric: reports: Reviewed and negative Endocrine: reports: Reviewed and negative Immunocompromised: reports: Reviewed and negative PD PAST MEDICAL HISTORY - Past Medical History Cardiovascular: Atrial fibrillation Respiratory: None Neuro: Other Endocrine/Autoimmune: HyPOthyroidism GI: GERD HEENT: None Psych: Other - Past Surgical History Past Surgical History: Yes General: Cholecystectomy, Splenectomy Ortho: Hip replacement, Knee replacement HEENT: Tonsil/Adenoidectomy - Present Medications Home Medications: Ambulatory Orders Medication Instructions Recorded Confirmed Acetaminophen [Tylenol] 650 mg PO Q4HR PRN tab 12/13/22 06/12/23 Apixaban [Eliquis] 2.5 mg PO BID #0 12/13/22 06/12/23 Calcium Carbonate [Tums (Calcium 500 mg PO TID PRN tab 12/13/22 06/12/23 Carbonate 500mg)] Cholecalciferol [Vitamin D3] 25 mcg PO DAILY tab 12/13/22 06/12/23 Furosemide [Lasix] 40 mg PO DAILY tab 12/13/22 06/12/23 Magnesium Oxide [Mag Ox] 400 mg PO 1200 tab 12/13/22 06/12/23 Multivitamin [Theragran] 1 tab PO DAILYWM tab 12/13/22 06/12/23 Thiamine [Vitamin B-1] 100 mg PO DAILY tab 12/13/22 06/12/23 Thyroid,Pork [[place] Thyroid] 60 mg PO DAILY #0 12/13/22 06/12/23 oxyCODONE [Roxicodone] 5 mg PO Q6H PRN #30 tablet 12/13/22 06/12/23 Metoprolol Tartrate [Lopressor] 25 mg PO BID 06/12/23 06/12/23 Thyroid,Pork [[place] Thyroid] 06/12/23 traZODone [Desyrel] 25 mg PO DAILY 06/12/23 06/12/23 cephALEXin [Keflex] 500 mg PO TID #20 cap 10/08/23 - Allergies Allergies/Adverse Reactions: Allergies Allergy/AdvReac Type Severity Reaction Status Date / Time aspirin Allergy Unknown Verified 10/14/23 14:29 iodine Allergy Unknown Verified 10/14/23 14:29 sulfamethoxazole Allergy Unknown Verified 10/14/23 14:29 [From Bactrim] trimethoprim [From Bactrim] Allergy Unknown Verified 10/14/23 14:29 - Social History Does the pt smoke?: No Smoking Status: Never smoker Does the pt drink ETOH?: No Does the pt have substance abuse?: No - Immunizations Immunizations are current?: Yes - POLST Patient has POLST: Yes POLST Status: DNR Results - Vitals Vitals: Vital Signs - 24 hr 10/14/23 10/14/23 14:22 14:28 Temperature 36.9 C Heart Rate 77 63 Respiratory 18 19 Rate Blood Pressure 179/82 H 147/110 H O2 Saturation 96 91 L Oxygen O2 Source Room air - Labs Labs: Laboratory Tests 10/14/23 10/14/23 10/14/23 14:55 14:55 15:20 WBC 9.1 RBC 4.57 Hgb 14.0 Hct 43.4 MCV 95.0 MCH 30.6 MCHC 32.3 RDW 14.2 Plt Count 281 MPV 9.0 Neut # (Auto) 3.6 Lymph # (Auto) 3.8 H [place] # (Auto) 0.8 Eos # (Auto) 0.7 Baso # (Auto) 0.1 Absolute Nucleated RBC 0.00 Nucleated RBC % 0.0 Sodium 137 Potassium 3.5 Chloride 98 L Carbon Dioxide 34 H Anion Gap 5.0 L BUN 13 Creatinine 0.7 Estimated GFR (MDRD) 79 L Glucose 110 H Calcium 9.5 Magnesium 1.7 Total Bilirubin 0.7 AST 21 ALT 12 Alkaline Phosphatase 69 Total Protein 7.0 Albumin 4.1 Globulin 2.9 Albumin/Globulin Ratio 1.4 Urine Color YELLOW Urine Clarity HAZY Urine pH 7.0 Ur Specific [place] 1.010 Urine Protein NEGATIVE Urine Glucose (UA) NEGATIVE Urine Ketones NEGATIVE Urine Occult Blood LARGE H Urine Nitrite NEGATIVE Urine Bilirubin NEGATIVE Urine Urobilinogen 0.2 (NORMAL) Ur Leukocyte Esterase NEGATIVE Urine RBC TNTC H Urine WBC 0-3 Ur Squamous Epith Cells NONE SEEN Urine Bacteria None Seen Ur Microscopic Review INDICATED Urine Culture Comments NOT INDICATED Departure - Departure Disposition: 01 Home, Self Care Clinical Impression: Cystitis, UTI (urinary tract infection), Acute urinary retention Condition: Good Instructions: ED Bladder Infec Cystitis Female Comments: Continue taking Keflex at home return with any color changes to Cabrera catheter abdominal pain nausea vomiting changes in mental status or any other new or worsening symptoms. Follow-up with urology in the outpatient setting. Forms: PCP List
[2023-10-14 15:14] LABS: ALBUMIN 4.1 g/dL (3.2-5.5); ALBUMIN/GLOBULIN RATIO 1.4 (1.0-2.2); BILIRUBIN,TOTAL 0.7 mg/dL (0.2-1.0); CALCIUM 9.5 mg/dL (8.5-10.3); CREATININE 0.7 mg/dL (0.6-1.3); POTASSIUM 3.5 mmol/L (3.5-4.5)
[2023-10-14 15:52] LABS: BILIRUBIN,URINE NEGATIVE (NEGATIVE); GLUCOSE, URINE (UA) NEGATIVE (NEGATIVE); KETONES,URINE (UA) NEGATIVE (NEGATIVE); LEUKOCYTE ESTERASE, URINE NEGATIVE (NEGATIVE); NITRITE,URINE NEGATIVE (NEGATIVE); OCCULT BLOOD,URINE LARGE (NEGATIVE); PROTEIN,URINE NEGATIVE (NEGATIVE); UROBILINOGEN,URINE 0.2 (NORMAL) E.U./dL (NORMAL)
[2023-10-14 16:00] LABS: CLARITY,URINE HAZY (CLEAR)
[2023-10-14 16:07] LABS: BACTERIA,URINE None Seen /HPF (None Seen); RBC,URINE TNTC /HPF (0-5); SQUAMOUS EPITHELIAL CELL,UR NONE SEEN (<= Few); WBC,URINE 0-3 /HPF (0-5)
== END 2023-10-14 19:08 | disposition home or self-care (01) ==
LOC: EDUNIT# → ED 14:15
DX: N30.90 Cystitis, unspecified without hematuria (principal); R33.9 Retention of urine, unspecified; I48.91 Unspecified atrial fibrillation; E03.9 Hypothyroidism, unspecified; I11.0 Hypertensive heart disease with heart failure; I50.9 Heart failure, unspecified; Z66 Do not resuscitate; Z79.01 Long term (current) use of anticoagulants; Z79.899 Other long term (current) drug therapy
CPT/HCPCS: 36415; 80053; 81001; 81003; 83735; 85025; 87086; 99283; 99284

== ENCOUNTER 2023-11-12 15:46 | Outpatient (CLI) | payer MEDICARE, OTHER | END 2023-11-12 23:59 | disposition short-term general hospital (02) | LOC: EMS 15:46 | DX: R41.0 Disorientation, unspecified (principal); R44.3 Hallucinations, unspecified; R30.9 Painful micturition, unspecified | CPT/HCPCS: A0425; A0429; A0888 ==

== ENCOUNTER 2023-11-28 14:07 | Outpatient (CLI) | payer MEDICARE, OTHER | END 2023-11-28 23:59 | disposition critical access hospital (66) | LOC: EMS 14:07 | DX: Z03.89 Encounter for observation for other suspected diseases and conditions ruled out (principal) | CPT/HCPCS: A0425; A0429 ==

== ENCOUNTER 2023-11-28 14:26 | Emergency (ER) | payer MEDICARE, OTHER ==
--- NOTE | 2023-11-28 14:54 | ED Physician Documentation ---
History of Present Illness - Stated complaint Stated Complaint: - Chief complaint Chief Complaint: General - History obtained from History obtained from: Patient, EMS - Additonal information Additional information: The patient is sent to the emergency department via EMS from [facility] where she resides for "needing meds changed" according to EMS. The patient is unclear as to exactly why she is here and states she feels "fine". She has a history of frequent UTI per records and her last UA in our system was in late September. The patient, however, states that she has no symptoms whatsoever with regard to her urinary system. No dysuria, frequency, or hematuria. She states she has had a cough for the last couple of weeks but is feeling much better now. Per conversation with the staff at [facility], the patient was "complaining of UTI symptoms" this morning, though they do not specify exactly what they mean by this. This is the reason she was sent here. They state that she wanted to come to would be because "it is closer" and that is why they did not send her back to [facility] where she was most recently evaluated. They are concerned because the last time she had a UA, the microbiology showed a fairly resistant strain of bacteria. PD PAST MEDICAL HISTORY - Past Medical History Cardiovascular: Atrial fibrillation Respiratory: None Neuro: Other Endocrine/Autoimmune: HyPOthyroidism GI: GERD HEENT: None Psych: Other - Past Surgical History Past Surgical History: Yes General: Cholecystectomy, Splenectomy Ortho: Hip replacement, Knee replacement HEENT: Tonsil/Adenoidectomy - Present Medications Home Medications: Ambulatory Orders Medication Instructions Recorded Confirmed Acetaminophen [Tylenol] 650 mg PO Q4HR PRN tab 12/13/22 11/28/23 Apixaban [Eliquis] 2.5 mg PO BID #0 12/13/22 11/28/23 Calcium Carbonate [Tums (Calcium 500 mg PO TID PRN tab 12/13/22 11/28/23 Carbonate 500mg)] Cholecalciferol [Vitamin D3] 25 mcg PO DAILY tab 12/13/22 11/28/23 Furosemide [Lasix] 40 mg PO DAILY tab 12/13/22 11/28/23 Magnesium Oxide [Mag Ox] 400 mg PO 1200 tab 12/13/22 11/28/23 Multivitamin [Theragran] 1 tab PO DAILYWM tab 12/13/22 11/28/23 Thyroid,Pork [Marvin Thyroid] 60 mg PO DAILY #0 12/13/22 11/28/23 Metoprolol Tartrate [Lopressor] 25 mg PO BID 06/12/23 11/28/23 traZODone [Desyrel] 25 mg PO DAILY 06/12/23 11/28/23 cephALEXin [Keflex] 500 mg PO TID #20 cap 10/08/23 11/28/23 Omeprazole 20 mg PO DAILY 11/28/23 11/28/23 - Allergies Allergies/Adverse Reactions: Allergies Allergy/AdvReac Type Severity Reaction Status Date / Time aspirin Allergy Unknown Verified 11/28/23 14:44 iodine Allergy Unknown Verified 11/28/23 14:44 sulfamethoxazole Allergy Unknown Verified 11/28/23 14:44 [From Bactrim] trimethoprim [From Bactrim] Allergy Unknown Verified 11/28/23 14:44 - Social History Does the pt smoke?: No Smoking Status: Never smoker Does the pt drink ETOH?: No Does the pt have substance abuse?: No - Immunizations Immunizations are current?: Yes - POLST Patient has POLST: Yes POLST Status: DNR PD ED PE NORMAL - Vitals Vital signs reviewed: Yes - General General: No acute distress, Well developed/nourished, Other (Alert, appropriate) - HEENT HEENT: Atraumatic, EOMI, Moist mucous membranes - Neck Neck: Supple, no meningeal sign - Cardiac Cardiac: RRR, No murmur - Respiratory Respiratory: No respiratory distress, Clear bilaterally - Abdomen Abdomen: Soft, Non tender, Non distended - Derm Derm: Normal color, Warm and dry, No rash - Extremities Extremities: No deformity, No edema - Neuro Neuro: Other (Alert, grossly intact ) - Psych Psych: Normal mood, Normal affect Results - Vitals Vitals: Vital Signs - 24 hr 11/28/23 11/28/23 14:36 16:58 Temperature 36.5 C 36.2 C L Heart Rate 73 71 Respiratory 18 15 Rate Blood Pressure 125/107 H 132/85 H O2 Saturation 94 95 Oxygen O2 Source Room air - Labs Labs: Laboratory Tests 11/28/23 14:43 Urine Color LIGHT YELLOW Urine Clarity CLEAR Urine pH 6.0 Ur Specific [place] <=1.005 Urine Protein NEGATIVE Urine Glucose (UA) NEGATIVE Urine Ketones NEGATIVE Urine Occult Blood NEGATIVE Urine Nitrite NEGATIVE Urine Bilirubin NEGATIVE Urine Urobilinogen 0.2 (NORMAL) Ur Leukocyte Esterase NEGATIVE Ur Microscopic Review NOT INDICATED Urine Culture Comments NOT INDICATED PD Medical Decision Making - ED course Complexity details: reviewed old records, reviewed results, re-evaluated patient, considered differential, d/w patient ED course: The patient was worked up with urinalysis in the emergency department. Urinalysis was completely normal. The assisted living facility had wanted the patient to get fluids but the patient was lucid and stated she did not want IV or fluids and refused. The patient was stable for discharge home. She is reporting no symptoms and has a negative UA. We have discussed the need for follow-up and the usual indications for return. Departure - Departure Disposition: Home, Self Care Clinical Impression: Normal exam Condition: Stable Instructions: ED Dysuria Uncertain Cause Comments: Ms. Fernandez has had no complaints whatsoever here in the emergency department and her urinalysis is completely normal. She did not wish to have an IV and refused this intervention. There is no evidence that she is severely dehydrated here in the emergency department. Please continue to encourage her to drink plenty of fluids at home if she wishes. If she is having any urinary complaints at [facility], she should follow-up with her primary doctor. There is no evidence of infection today. Forms: PCP List Discharge Date/Time: 11/28/23 16:59
[2023-11-28 16:05] LABS: BILIRUBIN,URINE NEGATIVE (NEGATIVE); GLUCOSE, URINE (UA) NEGATIVE (NEGATIVE); KETONES,URINE (UA) NEGATIVE (NEGATIVE); LEUKOCYTE ESTERASE, URINE NEGATIVE (NEGATIVE); NITRITE,URINE NEGATIVE (NEGATIVE); OCCULT BLOOD,URINE NEGATIVE (NEGATIVE); PROTEIN,URINE NEGATIVE (NEGATIVE); UROBILINOGEN,URINE 0.2 (NORMAL) E.U./dL (NORMAL)
[2023-11-28 16:08] LABS: CLARITY,URINE CLEAR (CLEAR)
[2023-11-28] MEDS: SODIUM CHLORIDE 0.9% 1,000 ML IV STA (16:08)
[2023-11-28 17:00] VITALS: BP 132/85; O2SAT 95
== END 2023-11-28 16:59 | disposition home or self-care (01) ==
LOC: EDUNIT# → ED 14:26
DX: Z03.89 Encounter for observation for other suspected diseases and conditions ruled out (principal); Z66 Do not resuscitate
CPT/HCPCS: 81001; 81003; 87086; 99282; 99283